=== PATIENT | female | born 1960 | race Caucasian/White ===

== ENCOUNTER 2016-04-27 10:37 | Emergency (ER) | payer MEDICAID, OTHER ==
[~2016-04-27] VITALS: Ht 160 cm; Wt 75.0 kg
[~2016-04-27 10:37] MED LIST: CYCL-36 PO; IBUP800 PO; MS C60TA4 PO
[2016-04-27 10:50] VITALS: BP 146/71; PULSE 72; RESP 16; TEMP 98.7; O2SAT 95
[2016-04-27] MEDS ORDERED: SODIUM CHLOR 0.9% 1000 ML INJ 1,000 ML IV SCH (10:53)
[2016-04-27] MEDS ORDERED: MS C60TA2 PO (10:56)
[2016-04-27] MEDS ORDERED: OXYC-426 PO (10:56)
[2016-04-27] MEDS ORDERED: ATEN25TA PO (10:56)
[2016-04-27] MEDS ORDERED: CYCL1TAB29 PO (10:56)
[2016-04-27] MEDS ORDERED: ONDANSETRON HCL 4 MG/2 ML VIAL IVP ONE (11:00)
[2016-04-27] MEDS ORDERED: SODIUM CHLORIDE 0.9% FLUSH 5 ML FLUSH IVF PRN (11:00)
--- NOTE | 2016-04-27 11:06 | PD ---
HPI Chief Complaint: GI Complaint Time Seen by Provider: 10:47 Travel History International Travel<30 days: No Contact w/Intl Traveler<30days: No Traveled to known affect area: No History of Present Illness HPI Patient is a 55-year-old female with history of hypertension, chronic back pain on opioid pain medications, presents to emergency room with complaints of constipation. Patient reports that for the past 10 days, she has felt constipated. Patient reports that she has been unable to have normal bowel movements, reports that she did try taking laxatives last night, reports that she did wake up in the middle of night and had diarrhea. Reports concern as she feels bloated and distended in her abdomen. Reports that she has been feeling nauseous but has not vomited. She has followed up with GI in the past and reports that she had a negative colonoscopy 1 year ago. Patient also reports that for the past 2 days, she has had increased right sided flank pain and hematuria. Reports that she does not have history of kidney stones in the past. Denies dysuria/urgency/freq. No other c/o. PFSH Past Medical History Hypertension: Yes Musculoskeletal: Yes (CHRONIC BACK PAIN WITH OPIATE USE) ?: Not Menopausal: Yes Past Surgical History Section: Yes Other Surgery: Yes (COLONOSCOPY) Family History Family History: Negative Social History Alcohol Use: No Tobacco Use: Yes (1 PPD) Substance Use: No Allergies-Medications (Allergen,Severity, Reaction): Coded Allergies: No Known Allergies (Unverified , 04/27/16) Reported Meds & Prescriptions Reported Meds & Active Scripts Active Reported Flexeril (Cyclobenzaprine HCl) 10 Mg Tab 10 Mg PO BID Atenolol 25 Mg Tab 25 Mg PO DAILY Ms Contin (Morphine Sulfate) 60 Mg Tab 60 Mg PO BID Oxycodone ER (Oxycodone HCl) 30 Mg Tab 30 Mg PO Q12HR Review of Systems General / Constitutional: No: Fever Eyes: No: Visual changes HENT: No: Headaches Cardiovascular: No: Chest Pain or Discomfort Respiratory: No: Shortness of Breath Gastrointestinal: Positive: Nausea, Abdominal Pain, Constipation, No: Vomiting Genitourinary: Positive: Hematuria, No: Urgency, Frequency, Dysuria Musculoskeletal: No: Pain Skin: No Rash Neurologic: No: Weakness Psychiatric: No: Depression Endocrine: No: Polydipsia Hematologic/Lymphatic: No: Easy Bruising Physical Exam Narrative GENERAL: mild distress SKIN: Warm and dry. HEAD: Atraumatic. Normocephalic. EYES: Pupils equal and round. No scleral icterus. No injection or drainage. ENT: No nasal bleeding or discharge. Mucous membranes pink and moist. NECK: Trachea midline. No JVD. CARDIOVASCULAR: Regular rate and rhythm. No murmur appreciated. RESPIRATORY: No accessory muscle use. Clear to auscultation. Breath sounds equal bilaterally. GASTROINTESTINAL: Abdomen soft, distended, no peritoneal signs. Hepatic and splenic margins not palpable. Patient with right sided flank pain on evaluation MUSCULOSKELETAL: No obvious deformities. No clubbing. No cyanosis. No edema. NEUROLOGICAL: Awake and alert. No obvious cranial nerve deficits. Motor grossly within normal limits. Normal speech. PSYCHIATRIC: Appropriate mood and affect; insight and judgment normal. Data Data Last Documented VS Vital Signs Date Time Temp Pulse Resp B/P Pulse Ox O2 Delivery O2 Flow Rate FiO2 04/27/16 10:50 98.7 72 16 146/71 95 Room Air Orders Complete Blood Count With Diff (04/27/16 10:53) Comprehensive Metabolic Panel (04/27/16 10:53) Lipase (04/27/16 10:53) Prothrombin Time / Inr (Pt) (04/27/16 10:53) Act Partial Throm Time (Ptt) (04/27/16 10:53) Urinalysis - C+S If Indicated (04/27/16 10:53) Ct Abd/Pel W/O Iv Contrast (04/27/16 10:53) Iv Access Insert/Monitor (04/27/16 10:53) Ondansetron Inj (Zofran Inj) (04/27/16 11:00) Sodium Chlor 0.9% 1000 Ml Inj (Ns 1000 M (04/27/16 10:53) Sodium Chloride 0.9% Flush (Ns Flush) (04/27/16 11:00) Chest, Single Ap (04/27/16 10:53) Labs Laboratory Tests Test 04/27/16 11:05 White Blood Count 10.1 TH/MM3 Red Blood Count 4.76 MIL/MM3 Hemoglobin 14.3 GM/DL Hematocrit 41.0 % Mean Corpuscular Volume 86.2 FL Mean Corpuscular Hemoglobin 30.1 PG Mean Corpuscular Hemoglobin 34.9 % Concent Red Cell Distribution Width 15.2 % Platelet Count 353 TH/MM3 Mean Platelet Volume 7.6 FL Neutrophils (%) (Auto) 73.8 % Lymphocytes (%) (Auto) 16.1 % Monocytes (%) (Auto) 9.0 % Eosinophils (%) (Auto) 0.6 % Basophils (%) (Auto) 0.5 % Neutrophils # (Auto) 7.4 TH/MM3 Lymphocytes # (Auto) 1.6 TH/MM3 Monocytes # (Auto) 0.9 TH/MM3 Eosinophils # (Auto) 0.1 TH/MM3 Basophils # (Auto) 0.1 TH/MM3 CBC Comment DIFF FINAL Differential Comment Prothrombin Time 10.7 SEC Prothromb Time International 1.0 RATIO Ratio Activated Partial 24.2 SEC Thromboplast Time Urine Color DARK-YELLOW Urine Turbidity CLEAR Urine pH 6.5 Urine Specific [place] 1.018 Urine Protein TRACE mg/dL Urine Glucose (UA) NEG mg/dL Urine Ketones NEG mg/dL Urine Occult Blood NEG Urine Nitrite NEG Urine Bilirubin SMALL Urine Urobilinogen 4.0 MG/DL Urine Leukocyte Esterase NEG Urine RBC 3 /hpf Urine WBC 1 /hpf Urine Squamous Epithelial 4 /hpf Cells Urine Bacteria RARE /hpf Urine Hyaline Casts 1 /lpf Urine Mucus FEW /lpf Microscopic Urinalysis Comment CULT NOT INDICATED Sodium Level 137 MEQ/L Potassium Level 4.1 MEQ/L Chloride Level 100 MEQ/L Carbon Dioxide Level 27.5 MEQ/L Anion Gap 10 MEQ/L Blood Urea Nitrogen 16 MG/DL Creatinine 1.02 MG/DL Estimat Glomerular Filtration 56 ML/MIN Rate Random Glucose 99 MG/DL Calcium Level 9.2 MG/DL Total Bilirubin 1.0 MG/DL Aspartate Amino Transf 213 U/L (AST/SGOT) Alanine Aminotransferase 61 U/L (ALT/SGPT) Alkaline Phosphatase 416 U/L Total Protein 7.8 GM/DL Albumin 3.3 GM/DL Lipase 255 U/L MDM Medical Decision Making Medical Screen Exam Complete: Yes Emergency Medical Condition: Yes Interpretation(s) Vital Signs Date Time Temp Pulse Resp B/P Pulse Ox O2 Delivery O2 Flow Rate FiO2 04/27/16 10:50 98.7 72 16 146/71 95 Room Air Differential Diagnosis Small bowel obstruction, constipation, kidney stone, colitis, electrolyte abnormality, obstructive mass, malignancy Narrative Course Patient is a 55-year-old female who presents to emergency room with complaints of abdominal pain with constipation for the past 10 days. Patient reports that she has been unable to have a normal bowel movement for the past 10 days and does feel like her symptoms are from being on opioid pain medications. Reports that her hematocrit doctor recently increased her dose of pain medications. Patient did take a laxative last night and did have episodes diarrhea yesterday. Patient concerned as she has distended abdomen and diffuse abdominal pain. Reports that she feels nauseous from the abdominal swelling. Patient also with complaints of hematuria for the past 2 days with right-sided flank pain. Patient with no fevers or chills. Patient with no chest pain or shortness of breath. Patient with no other complaints at this time. IV was placed and patient, labs as well as UA ordered. CT abdomen and pelvis ordered for evaluation of possible SBO vs kidney stone vs obstructive pathology causing constipation. Laboratory Tests Test 04/27/16 11:05 White Blood Count 10.1 TH/MM3 (4.0-11.0) Red Blood Count 4.76 MIL/MM3 (4.00-5.30) Hemoglobin 14.3 GM/DL (11.6-15.3) Hematocrit 41.0 % (35.0-46.0) Mean Corpuscular Volume 86.2 FL (80.0-100.0) Mean Corpuscular Hemoglobin 30.1 PG (27.0-34.0) Mean Corpuscular Hemoglobin 34.9 % Concent (32.0-36.0) Red Cell Distribution Width 15.2 % (11.6-17.2) Platelet Count 353 TH/MM3 (150-450) Mean Platelet Volume 7.6 FL (7.0-11.0) Neutrophils (%) (Auto) 73.8 % (16.0-70.0) Lymphocytes (%) (Auto) 16.1 % (9.0-44.0) Monocytes (%) (Auto) 9.0 % (0.0-8.0) Eosinophils (%) (Auto) 0.6 % (0.0-4.0) Basophils (%) (Auto) 0.5 % (0.0-2.0) Neutrophils # (Auto) 7.4 TH/MM3 (1.8-7.7) Lymphocytes # (Auto) 1.6 TH/MM3 (1.0-4.8) Monocytes # (Auto) 0.9 TH/MM3 (0-0.9) Eosinophils # (Auto) 0.1 TH/MM3 (0-0.4) Basophils # (Auto) 0.1 TH/MM3 (0-0.2) CBC Comment DIFF FINAL Differential Comment Prothrombin Time 10.7 SEC (9.8-11.6) Prothromb Time International 1.0 RATIO Ratio Activated Partial 24.2 SEC Thromboplast Time (24.3-30.1) Urine Color DARK-YELLOW (YELLW/STRAW) Urine Turbidity CLEAR (CLEAR) Urine pH 6.5 (5.0-8.5) Urine Specific [place] 1.018 (1.002-1.035) Urine Protein TRACE mg/dL (NEG-TRACE) Urine Glucose (UA) NEG mg/dL (NEG) Urine Ketones NEG mg/dL (NEG) Urine Occult Blood NEG (NEG) Urine Nitrite NEG (NEG) Urine Bilirubin SMALL (NEG) Urine Urobilinogen 4.0 MG/DL (LESS THAN 2.0) Urine Leukocyte Esterase NEG (NEG) Urine RBC 3 /hpf (0-3) Urine WBC 1 /hpf (0-5) Urine Squamous Epithelial 4 /hpf (0-5) Cells Urine Bacteria RARE /hpf (NONE) Urine Hyaline Casts 1 /lpf (RARE) Urine Mucus FEW /lpf (OCC) Microscopic Urinalysis Comment CULT NOT INDICATED Sodium Level 137 MEQ/L (136-145) Potassium Level 4.1 MEQ/L (3.5-5.1) Chloride Level 100 MEQ/L (98-107) Carbon Dioxide Level 27.5 MEQ/L (21.0-32.0) Anion Gap 10 MEQ/L (5-15) Blood Urea Nitrogen 16 MG/DL (7-18) Creatinine 1.02 MG/DL (0.50-1.00) Estimat Glomerular Filtration 56 ML/MIN (>89) Rate Random Glucose 99 MG/DL (74-106) Calcium Level 9.2 MG/DL (8.5-10.1) Total Bilirubin 1.0 MG/DL (0.2-1.0) Aspartate Amino Transf 213 U/L (15-37) (AST/SGOT) Alanine Aminotransferase 61 U/L (10-53) (ALT/SGPT) Alkaline Phosphatase 416 U/L (45-117) Total Protein 7.8 GM/DL (6.4-8.2) Albumin 3.3 GM/DL (3.4-5.0) Lipase 255 U/L (73-393) Last Impressions Chest X-Ray 04/27/16 1053 Signed Impressions: Service Date/Time: Wednesday, April 27, 2016 11:13 - CONCLUSION: Masslike density in the left hilum. Contrasted CT chest recommended. This could be related to mass or round pneumonia. Willis Ayala MD Abdomen/Pelvis CT 04/27/16 1053 Signed Impressions: Service Date/Time: Wednesday, April 27, 2016 11:16 - CONCLUSION: 1. Cirrhotic liver with too numerous to count low-density lesions concerning for metastatic disease. 2. No renal calculi or hydronephrosis. Willis Ayala MD Patient's x-ray chest with questionable masslike density to the left hilum. Patient also with CAT scan of abdomen and pelvis with cirrhotic liver containing low-density lesions which are concerning for metastatic disease. A copy of patient's labs and radiology report was given to patient. I did review all findings and concerns with patient and her in detail. Patient understands importance of following with a primary care doctor as well as oncologist. Patient will bring her studies to doctor's office for follow-up. Signs and symptoms of when to return to emergency room was reviewed with patient in detail. Diagnosis Primary Impression: Abdominal pain Qualified Code: R10.84 - Generalized abdominal pain Additional Impressions: Transaminitis Mass of left lung Liver cirrhosis Qualified Code: K74.60 - Cirrhosis of liver without ascites, unspecified hepatic cirrhosis type Liver cyst Liver lesion Referrals: Betsy Mccall MD, Saud El-sayed MD Patient Instructions: General Instructions Additional Instructions: Please provide patient with a copy of her lab work and radiology report at discharge Please follow-up with your primary care doctor as soon as possible Please call video editing internship as well as oncologist as soon as possible for earliest follow-up appointment. Please bring your lab work as well as her radiology report to doctor's office for follow-up on all studies from today. Return to emergency room as needed Return to emergency room if symptoms worsen or progress Disposition: 01 DISCHARGE HOME Condition: Stable Dana Castellanos DO Apr 27, 2016 11:06 Dana Castellanos DO Apr 27, 2016 11:06
[2016-04-27 11:34] LABS: AUTOMATED NEUTROPHIL # 7.4 TH/MM3 (1.8-7.7); BASOPHIL # 0.1 TH/MM3 (0-0.2); BASOPHIL % 0.5 % (0.0-2.0); EOSINOPHIL # 0.1 TH/MM3 (0-0.4); EOSINOPHIL % 0.6 % (0.0-4.0); HEMO FLAGS DIFF FINAL; LYMPH % 16.1 % (9.0-44.0); LYMPHOCYTE # 1.6 TH/MM3 (1.0-4.8); MEAN CELL VOLUME 86.2 FL (80.0-100.0); MEAN CORPUSCULAR HEMOGLOBIN 30.1 PG (27.0-34.0); MEAN CORPUSCULAR HGB CONC 34.9 % (32.0-36.0); NEUT % 73.8 % (16.0-70.0); PLATELET COUNT 353 TH/MM3 (150-450); RED BLOOD COUNT 4.76 MIL/MM3 (4.00-5.30); RED CELL DISTRIBUTION WIDTH 15.2 % (11.6-17.2); WHITE BLOOD COUNT 10.1 TH/MM3 (4.0-11.0)
--- NOTE | 2016-04-27 11:35 | RADRPT ---
EXAM DATE/TIME: 04/27/2016 11:13 [facility] COMPARISON: No previous studies available for comparison. INDICATIONS : Abdominal pain and shortness of breath. MEDICAL HISTORY : None. SURGICAL HISTORY : None. ENCOUNTER: Initial ACUITY: 1 day PAIN SCORE: 8/10 LOCATION: Bilateral lower chest FINDINGS: A single view of the chest demonstrates masslike density in the left hilar region. Right lung is angie r. Heart normal in size. The cardiomediastinal contours are unremarkable. Osseous structures are in tact. CONCLUSION: Masslike density in the left hilum. Contrasted CT chest recommended. This could be related to mass or round pneumonia. Willis Ayala MD on April 27, 2016 at 11:33 Board Certified Radiologist. This report was verified electronically.
--- NOTE | 2016-04-27 11:40 | RADRPT ---
EXAM DATE/TIME: 04/27/2016 11:16 [facility] COMPARISON: No previous studies available for comparison. INDICATIONS : Hematuria. Evaluate for renal stone. ORAL CONTRAST: No oral contrast ingested. RADIATION DOSE: 14.38 CTDIvol (mGy) MEDICAL HISTORY : Hypertension. SURGICAL HISTORY : None. ENCOUNTER: Initial ACUITY: 1 day PAIN SCALE: 0/10 LOCATION: Right abdomen/pelvis TECHNIQUE: Volumetric scanning of the abdomen and pelvis was performed. Using automated exposure control and ad justment of the mA and/or kV according to patient size, radiation dose was kept as low as reasonably achievable to obtain optimal diagnostic quality images. FINDINGS: LOWER LUNGS: The visualized lower lungs are clear. LIVER: Cirrhotic liver containing numerous to count low-density lesions.. There is no dilation of the bilia ry tree. No calcified gallstones. There are some borderline prominent lymph nodes in the stephon hepat is and gastric hepatic ligament. SPLEEN: Normal size without lesion. PANCREAS: Within normal limits. KIDNEYS: Normal in size and shape. There is no mass, stone, or hydronephrosis. ADRENAL GLANDS: Within normal limits. VASCULAR: There is no aortic aneurysm. BOWEL/MESENTERY: The stomach, small bowel, and colon demonstrate no acute abnormality. There is no free intraperitone al air or fluid. ABDOMINAL WALL: Within normal limits. RETROPERITONEUM: There is no lymphadenopathy. BLADDER: No wall thickening or mass. REPRODUCTIVE: Within normal limits. INGUINAL: There is no lymphadenopathy or hernia. MUSCULOSKELETAL: Within normal limits for patient age. CONCLUSION: 1. Cirrhotic liver with too numerous to count low-density lesions concerning for metastatic disease. 2. No renal calculi or hydronephrosis. Willis Ayala MD on April 27, 2016 at 11:37 Board Certified Radiologist. This report was verified electronically.
[2016-04-27 11:42] LABS: APTT (PATIENT) 24.2 SEC (24.3-30.1); PROTHROMBIN TIME - PATIENT 10.7 SEC (9.8-11.6)
[2016-04-27 11:49] LABS: BACTERIA, URINE RARE /hpf; BLOOD, URINE NEG (NEG); COMMENT (UR) CULT NOT INDICATED; CULTURE IF INDICATED CULT NOT INDICATED; GLUCOSE,URINE NEG (NEG); HYALINE CAST, URINE 1 /lpf (RARE); KETONE, URINE NEG (NEG); MUCUS URINE FEW /lpf (OCC); NITRITE,URINE NEG (NEG); PH, URINE 6.5 (5.0-8.5); SQUAMOUS EPITHELIAL CELL URINE 4 /hpf (0-5); URINE COLOR DARK-YELLOW (YELLW/STRAW)
[2016-04-27 11:53] LABS: ANION GAP 10 MEQ/L (5-15); AST (GOT) 213 U/L (15-37); BICARBONATE 27.5 MEQ/L (21.0-32.0); BLOOD UREA NITROGEN 16 MG/DL (7-18); CHLORIDE 100 MEQ/L (98-107); GLOMERULAR FILTRATION RATE 56 ML/MIN (>89); SODIUM (NA) 137 MEQ/L (136-145)
[2016-04-27 11:57] LABS: ALKALINE PHOSPHATASE 416 U/L (45-117); ALT (GPT) 61 U/L (10-53); POTASSIUM 4.1 MEQ/L (3.5-5.1)
== END 2016-04-27 13:00 | disposition home or self-care (01) ==
LOC: MERGE 10:37 → NEPE 10:37
DX: R10.84 Generalized abdominal pain (principal); R74.0 Nonspecific elevation of levels of transaminase and lactic acid dehydrogenase [LDH]; R91.8 Other nonspecific abnormal finding of lung field; K74.60 Unspecified cirrhosis of liver; K76.89 Other specified diseases of liver; R06.02 Shortness of breath; R11.0 Nausea; I10 Essential (primary) hypertension; F17.210 Nicotine dependence, cigarettes, uncomplicated
CPT/HCPCS: 71010; 74176; 80053; 81001; 83690; 85025; 85610; 85730; 96361; 96374; 99284; J2405; J7030

== ENCOUNTER 2016-05-20 08:14 | Day surgery (SDC) | payer OTHER ==
[~2016-05-20 08:14] MED LIST changes: +ATEN25TA PO; +CYCL1TAB29 PO; +MS C60TA2 PO; +OXYC-426 PO
--- NOTE | 2016-05-20 14:57 | RADRPT ---
EXAM DATE/TIME: 05/20/2016 08:33 [facility] COMPARISON: No previous studies available for comparison. INDICATIONS : Ascites, abdominal distention. MEDICAL HISTORY : Hypertension. SURGICAL HISTORY : section. Colonoscopy. ENCOUNTER: Initial ACUITY: 1 day PAIN SCORE: 3/10 LOCATION: Abdomen. AREA EVALUATED: RUQ/RLQ, MIDLINE, LUQ/LLQ FINDINGS: Imaging of the abdomen and pelvis was performed to evaluate for ascites for possible paracentesis. No ascites seen in the 4 quadrants. CONCLUSION: No abdominal ascites. Willis Ayala MD on May 20, 2016 at 14:55 Board Certified Radiologist. This report was verified electronically.
[2016-05-21] MEDS ORDERED: ATEN25TA PO (08:34)
[2016-05-21] MEDS ORDERED: SPIR50TA PO (08:34)
[2016-05-21] MEDS ORDERED: FURO40TA PO (08:34)
[2016-05-21] MEDS ORDERED: OXYC30TA PO (08:34)
[2016-05-21] MEDS ORDERED: METF500T PO (08:34)
[2016-05-21] MEDS ORDERED: ZOFR8TAB PO (08:34)
[2016-05-21] MEDS ORDERED: CYCL1TAB29 PO (08:37)
[2016-05-21] MEDS ORDERED: MORP60TA24 PO (08:37)
== END 2016-05-20 09:00 | disposition home or self-care (01) ==
LOC: MERGE 08:14 → HRAD 08:14 → HRIP 08:15 → HRAD 09:00
DX: R18.8 Other ascites (principal); I10 Essential (primary) hypertension
CPT/HCPCS: 76705

== ENCOUNTER 2016-05-21 08:18 | Day surgery (SDC) | payer OTHER ==
[2016-05-20 08:38] VITALS: BP 138/74; PULSE 85; RESP 14; TEMP 98.7; O2SAT 95
[2016-05-21] VITALS (8 sets, daily range): BP systolic 111–141; BP diastolic 52–92; PULSE 92–105; RESP 16–20; TEMP 98.3; O2SAT 90–98
[~2016-05-21] VITALS: Ht 160 cm; Wt 69.1 kg
[2016-05-21] MEDS ORDERED: METF500T PO (08:34)
[2016-05-21] MEDS ORDERED: OXYC30TA PO (08:34)
[2016-05-21] MEDS ORDERED: FURO40TA PO (08:34)
[2016-05-21] MEDS ORDERED: ATEN25TA PO (08:34)
[2016-05-21] MEDS ORDERED: SPIR50TA PO (08:34)
[2016-05-21] MEDS ORDERED: ZOFR8TAB PO (08:34)
[2016-05-21] MEDS ORDERED: CYCL1TAB29 PO (08:37)
[2016-05-21] MEDS ORDERED: MORP60TA24 PO (08:37)
[2016-05-21] MEDS ORDERED: SODIUM CHLORIDE 5 ML FLUSH PRN IVF (09:15)
[2016-05-21] MEDS ORDERED: SODIUM CHLOR 0.9% 1000 ML IV SCH (09:15)
[2016-05-21] MEDS ORDERED: LIDOCAINE 1%/EPINEPHrine 1:100,000 SOLN 20 ML VIAL ONE (09:37)
[2016-05-21] MEDS ORDERED: fentaNYL CITRATE 250 MCG/5 ML AMP ONE (10:03)
[2016-05-21] MEDS ORDERED: MIDAZOLAM HCL 5 MG/5 ML VIAL ONE (10:03)
[2016-05-21] MEDS ORDERED: HYDROmorphone HCL 2 MG TAB PO PRN (11:00)
--- NOTE | 2016-05-21 16:22 | RADRPT ---
EXAM DATE/TIME: 05/21/2016 10:12 [facility] COMPARISON: No previous studies available for comparison. INDICATIONS : Liver mass. SEDATION TIME: 30 minutes BIOPSY SITE: Liver MEDICATION(S): 1.) 2.5 mg midazolam (Versed) IV 2.) 125 mcg fentanyl (Sublimaze) IV DEVICE(S): 1.) 18 gauge Temno core biopsy needle MEDICAL HISTORY : Cirrhosis. Diabetes mellitus type 2. Hypertension. Lung mass. SURGICAL HISTORY : section. ENCOUNTER: Initial ACUITY: 1 day PAIN SCORE: 0/10 LOCATION: Liver A total of three core specimen(s) were obtained and sent to the laboratory for pathologic evaluation. PROCEDURE: 1. CT guided liver biopsy of multiple liver masses. 2. Conscious sedation with continuous EKG and oximetry monitoring. 3. EKG and oximetry remained stable throughout the procedure. Prior to the procedure informed consent was obtained. Any appropriate prior imaging studies were rev iewed. Using automated exposure control and adjustment of the mA and/or kV according to patient size, radiat ion dose was kept as low as reasonably achievable to obtain optimal diagnostic quality images. The site was prepped in a sterile fashion. Full sterile technique was used, including cap, mask, vianey rile gloves and gown and a large sterile sheet. Hand hygiene and 2% chlorhexidine and/or betadine/al cohol prep was utilized per protocol for cutaneous antisepsis. The skin and subcutaneous tissues wer e infiltrated with local anesthetic solution. With CT guidance the previously identified target was localized. Biopsy was performed using the presc ribed needle as above. Adequate hemostasis was obtained with compression at the puncture site. Follow-up CT scan reveals no hemorrhage. The patient tolerated the procedure well and there were no complications. The patient was returned to the Radiology Outpatient Unit in stable condition. CONCLUSION: Uncomplicated CT guided biopsy. Willis Ayala MD on May 21, 2016 at 16:20 Board Certified Radiologist. This report was verified electronically.
[2016-05-21] MEDS ORDERED: SODIUM CHLORIDE 5 ML FLUSH BID IVF SCH (21:00)
== END 2016-05-21 15:00 | disposition home or self-care (01) ==
LOC: HRAD 08:18 → HRIP 08:22 → HRAD 15:00
DX: C78.7 Secondary malignant neoplasm of liver and intrahepatic bile duct (principal); K74.60 Unspecified cirrhosis of liver; E11.9 Type 2 diabetes mellitus without complications; I10 Essential (primary) hypertension
CPT/HCPCS: 47000; 77012; 88307; 88341; 88342; J2250; J3010; J7030

== ENCOUNTER 2016-06-05 09:07 | Day surgery (SDC) | payer OTHER ==
[~2016-06-05] VITALS: Ht 160 cm; Wt 70.0 kg
[~2016-06-05 09:07] MED LIST changes: -CYCL-36 PO; +FURO40TA PO; -IBUP800 PO; +METF500T PO; +MORP60TA24 PO; -MS C60TA4 PO; +OXYC30TA PO; +SPIR50TA PO; +ZOFR8TAB PO
[2016-06-05 09:24] VITALS: BP 146/82; PULSE 98; RESP 20; TEMP 97.1; O2SAT 95
[2016-06-05] MEDS ORDERED: PANT20TA2 PO (09:44)
[2016-06-05] MEDS ORDERED: POVIDONE IODINE 5% (ANTISEPSIS KIT) 4 APPLICATIONS EACH NARE SCH (10:30)
[2016-06-05] MEDS ORDERED: SODIUM CHLORIDE 0.9% 1000 ML IV SCH (10:30)
[2016-06-05] MEDS ORDERED: CHLORHEXIDINE GLUCONATE 2 % 1 PACK (2 CLOTHS) TOPICAL SCH (10:30)
[2016-06-05] MEDS ORDERED: VANCOMYCIN 1000 MG/NS 250 ML - implanted port/tunneled catheter IV SCH ×2 (10:30)
[2016-06-05] MEDS ORDERED: ceFAZolin 2 GM PREMIX 50 ML - implanted port/tunneled catheter insertion IV SCH (10:30)
[2016-06-05] MEDS ORDERED: MUPIROCIN 2% OINT 1 APPLIC/GM SYR EACH NARE SCH (10:30)
[2016-06-05] MEDS ORDERED: LIDOCAINE 1%/EPINEPHrine 1:100,000 SOLN 20 ML VIAL ONE (10:44)
[2016-06-05] MEDS ORDERED: MIDAZOLAM HCL 5 MG/5 ML VIAL ONE (11:06)
[2016-06-05] MEDS ORDERED: fentaNYL CITRATE 250 MCG/5 ML AMP ONE (11:06)
[2016-06-05] MEDS ORDERED: HYDROmorphone HCL PF 2 MG/ML VIAL ONE (11:27)
--- NOTE | 2016-06-05 11:49 | PD.RAD ---
Post Procedure Progress Note Pre Procedure Diagnosis: (1) Liver cancer Post Procedure Diagnosis: (1) Liver cancer Procedure Date: Jun 05, 2016 Supervising Radiologist: Dimas Anders JR Proceduralist/Assist: Colton Kerr, RT(R), RT Barb(R)() Anesthesia: Conscious Sedation Plan of Activity Patient to Unit: ROPU Patient Condition: Good See PACS Report for procedural detail/treatment Central Venous Access Device Procedure 1 Right Internal Jugular Infusaport Placement single lumen [place]: 8 Findings: Port in good position and functions well. OK to use. Plan F/U with IR or a physician in 10-14 days for a site check Jr. Chago,Dimas Crane MD Jun 05, 2016 11:49
[2016-06-05 12:00] VITALS: BP 142/77; PULSE 109; RESP 20; TEMP 96.2; O2SAT 93
[2016-06-05] MEDS ORDERED: SODIUM CHLORIDE 0.9% FLUSH 5 ML FLUSH IVF PRN (12:00)
[2016-06-05 12:15] VITALS: BP 136/75; PULSE 109; RESP 20; O2SAT 93
[2016-06-05 12:45] VITALS: BP 128/78; PULSE 111; RESP 20; O2SAT 93
[2016-06-05 13:15] VITALS: BP 122/80; PULSE 106; RESP 20; O2SAT 93
--- NOTE | 2016-06-05 13:32 | RADRPT ---
EXAM DATE/TIME: 06/05/2016 11:18 [facility] COMPARISON: No previous studies available for comparison. INDICATIONS : Patient with history of lung and liver cancer in need of port placement. MEDICAL HISTORY : 1.Liver cancer 2. Lung cancer 3.Osteoarthritis 4.DDD 5.Hypertension 6.DM 7.Cirroses 8.GERD 9.Anxiety 10.Depression 11.Smoker 12.Chronic back pain SURGICAL HISTORY : 1. ENCOUNTER: Initial ACUITY: 2 weeks PAIN SCORE: 4/10 LOCATION: Lower back. FLUORO TIME: 0.4 minutes IMAGE SERIES: 1 SEDATION TIME: 20 minutes ACCESS: Right internal jugular vein SEDATION: 1.) 4 mg midazolam (Versed) IV 2.) 200 mcg fentanyl (Sublimaze) IV 3.) 2mg hydromorphone (Dilaudid) IV Prophylactic antibiotics were administered with appropriate pre-procedure timing. Vancomycin within 2 hours of procedure, Ancef (or alternative) within 1 hour of procedure. DEVICE: 1. 8 [place] single lumen Bard Power Port PROCEDURE : 1. Continuous pulse oximetry and EKG monitoring. 2. Intravenous conscious sedation. 3. Ultrasound guidance for venous access. 4. Fluoroscopic guided implantable central venous port placement. The patient was placed supine. The neck was prepped in sterile fashion. Full sterile technique was u sed, including cap, mask, sterile gloves and gown, and a large sterile sheet. Hand hygiene and 2% ch lorhexidine Betadine was utilized per protocol for cutaneous antisepsis with appropriate dry time for site. The skin and subcutaneous tissues were infiltrated with local anesthetic solution. Under direct ultrasound guidance, central venous access was accomplished in the targeted vessel. The ultrasound images depicting access guidance were stored and saved to PACS for permanent record. A s ubcutaneous pocket was created using blunt dissection. The port was introduced to the pocket. The c atheter tubing was fed through a subcutaneous tunnel to the venotomy site. The catheter tubing was c ut to a suitable length and then was introduced through a valved Peel-Away sheath and positioned with catheter tubing tip at the cavo-atrial junction level. The pocket incision was closed with subcutic ular Vicryl suture. Steri-Strips were applied. The port was flushed and locked with heparin solutio n per protocol. Sterile dressing was applied to the site. The patient tolerated the procedure well. Conscious sedation was performed with the prescribed dosages and duration as above in the presence of an independent trained radiology nurse to assist in the monitoring of the patient. EKG and oximetry remained stable throughout the procedure. The patient tolerated the procedure well and there were no complications. The patient was sent to post anesthesia recovery in stable condition. CONCLUSION: Uncomplicated ultrasound and fluoroscopic guided implanted central venous port catheter placement as described in detail above. An 8 [place] Power port was placed. Dimas Anders Jr., MD on June 05, 2016 at 13:30 Board Certified Radiologist. This report was verified electronically.
[2016-06-05 13:45] VITALS: BP 109/70; PULSE 99; RESP 20; O2SAT 93
== END 2016-06-05 14:00 | disposition home or self-care (01) ==
LOC: HROP 09:07 → HRIP 09:08 → HROP 14:00
PROVIDERS: ATTEND Internal Medicine Hematology & Oncology
DX: C22.9 Malignant neoplasm of liver, not specified as primary or secondary (principal); I10 Essential (primary) hypertension; Z85.118 Personal history of other malignant neoplasm of bronchus and lung; E11.9 Type 2 diabetes mellitus without complications; G89.29 Other chronic pain; K21.9 Gastro-esophageal reflux disease without esophagitis; F17.210 Nicotine dependence, cigarettes, uncomplicated
CPT/HCPCS: 36561; 76937; 77001; 99152; 99153; C1788; J1170; J1642; J2250; J3010

== ENCOUNTER 2016-07-14 10:16 | Emergency (ER) | payer OTHER ==
[~2016-07-14] VITALS: Ht 160 cm; Wt 66.5 kg
[~2016-07-14 10:16] MED LIST changes: -FURO40TA PO; -METF500T PO; +PANT20TA2 PO; -SPIR50TA PO
[2016-07-14 10:18] VITALS: BP 169/75; PULSE 102; RESP 17; TEMP 98.6; O2SAT 95
--- NOTE | 2016-07-14 11:16 | RADRPT ---
EXAM DATE/TIME: 07/14/2016 11:06 [facility] COMPARISON: No previous studies available for comparison. INDICATIONS : Chest pain. MEDICAL HISTORY : Hypertension. Carcinoma, lung. Diabetes mellitus type II. Smoker. SURGICAL HISTORY : Port placement. ENCOUNTER: Initial ACUITY: 2 days PAIN SCORE: 10/10 LOCATION: Right chest, port location. FINDINGS: PA and lateral views of the chest demonstrate lingular density. Right lung is clear. Right-sided port acatheter with tip in the SVC. The cardiomediastinal contours are unremarkable. Osseous structures a re intact. CONCLUSION: Lingular density could be atelectasis or infiltrate. Willis Ayala MD on July 14, 2016 at 11:14 Board Certified Radiologist. This report was verified electronically.
[2016-07-14] MEDS ORDERED: KETOROLAC TROMETHAMINE 60 MG/2 ML (IM) VIAL IM ONE (12:15)
[2016-07-14] MEDS ORDERED: ORPHENADRINE INJ 60 MG/2 ML AMP IM ONE (12:15)
--- NOTE | 2016-07-14 12:16 | PD ---
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 Patient states she woke up at 5 AM this morning with the pain, she noticed swelling above her right clavicle as well. She states it's painful to rotate her head to the right, she reports her pain is a 10 out of 10. She denies any injury or trauma, she denies any headaches, chest pain, shortness of breath, abdominal pain, nausea or vomiting, fevers. Patient's past medical history significant for lung cancer with metastatic disease, hypertension, GERD. Patient took oxycodone at 0500 this morning she fell back asleep, when she woke the pain was still there so she came to emergency department for evaluation. PFSH Past Medical History Arthritis: Yes (OSTEOARTHRITIS) Cancer: Yes (metastatic lung cancer) Cardiovascular Problems: No High Cholesterol: Yes (PT STATES WNL LIMITS) COPD: Yes Diabetes: Yes Diminished Hearing: No Endocrine: No GERD: Yes Hepatitis: No Hiatal Hernia: No Hypertension: Yes Immune Disorder: No Musculoskeletal: Yes (SPINE DISEASE (DEGENERATIVE DISC)) Neurologic: No Psychiatric: No Reproductive: No Thyroid Disease: No ?: Not Menopausal: Yes : 3 Para: 2 : 1 Past Surgical History Abdominal Surgery: No AICD: No Cardiac Surgery: No Section: Yes Ear Surgery: No Endocrine Surgery: No Eye Surgery: No Genitourinary Surgery: No Gynecologic Surgery: Yes (C SECTION) Joint Replacement: No Oral Surgery: No Pacemaker: No Thoracic Surgery: No Other Surgery: Yes (COLONOSCOPY) Family History Family Hypercholesterolemia: Yes (FATHER) Social History Alcohol Use: No Tobacco Use: Yes (1 PPD) Substance Use: No Allergies-Medications (Allergen,Severity, Reaction): Coded Allergies: No Known Allergies (Verified , 07/14/16) Reported Meds & Prescriptions Reported Meds & Active Scripts Active Reported Pantoprazole (Pantoprazole Sodium) 20 Mg Tab 20 Mg PO DAILY Zofran (Ondansetron HCl) 8 Mg Tab 8 Mg PO TID Flexeril (Cyclobenzaprine HCl) 10 Mg Tab 10 Mg PO BID Atenolol 25 Mg Tab 25 Mg PO DAILY Ms Contin (Morphine Sulfate) 60 Mg Tab 60 Mg PO BID Oxycodone ER (Oxycodone HCl) 30 Mg Tab 30 Mg PO Q12HR Review of Systems Except as stated in HPI: all other systems reviewed are Neg HENT: Positive: Neck Stiffness, Neck Pain, No: Headaches Musculoskeletal: Positive: Edema (above right clavicle) Physical Exam Narrative GENERAL: Well-developed, chronically ill-appearing female. Resting in no acute distress. SKIN: Focused skin assessment warm/dry. HEAD: Atraumatic. Normocephalic. EYES: Pupils equal and round. No scleral icterus. No injection or drainage. ENT: No nasal bleeding or discharge. Mucous membranes pink and moist. NECK: Trachea midline. No JVD. CARDIOVASCULAR: Regular rate and rhythm. 2/6 murmur appreciated. RESPIRATORY: No accessory muscle use. Clear to auscultation. Breath sounds equal bilaterally. GASTROINTESTINAL: Abdomen soft, non-tender, nondistended. Hepatic and splenic margins not palpable. MUSCULOSKELETAL: No obvious deformities. No clubbing. No cyanosis. Mild supraclavicular edema on the right, tender point in right trapezius. No spinal tenderness noted. NEUROLOGICAL: Awake and alert. No obvious cranial nerve deficits. Motor grossly within normal limits. Normal speech. PSYCHIATRIC: Appropriate mood and affect; insight and judgment normal. Data Data Last Documented VS Vital Signs Date Time Temp Pulse Resp B/P Pulse Ox O2 Delivery O2 Flow Rate FiO2 07/14/16 10:18 98.6 102 17 169/75 95 Orders Chest, Pa & Lat (07/14/16 ) Ketorolac Inj (Toradol Inj) (07/14/16 12:15) Orphenadrine Inj (Norflex Inj) (07/14/16 12:15) [facility] Medical Decision Making Medical Screen Exam Complete: Yes Emergency Medical Condition: Yes Interpretation(s) Vital Signs Date Time Temp Pulse Resp B/P Pulse Ox O2 Delivery O2 Flow Rate FiO2 07/14/16 10:18 98.6 102 17 169/75 95 Differential Diagnosis Strain versus sprain versus spasm versus discogenic pain versus other Narrative Course Patient's 56-year-old female presenting to emergency for evaluation of right neck pain that started upon awakening this morning. Patient is afebrile, no meningeal signs. Patient will be given Toradol and Norflex now. Due to the swelling in the right supraclavicular region. Attending physician recommended ultrasound. Ultrasound ordered and pending. 1340 patient wants to leave, she needs to go to her oncologist office to have her port flushed. She was advised that she would be leaving the emergency department without been fully evaluated. She was advised on the risks regarding possible blood clot. Verbalizes instructions and then stated that her oncologist will evaluate her. She was advised to return to emergency department immediately for any new or worsening symptoms. Patient be given prescriptions for ibuprofen and Flexeril. She was encouraged to alternate heat and ice to affected area, continue range of motion exercises, avoid bed rest. Patient and verbalized understanding of these instructions. Patient is stable for discharge. Diagnosis Primary Impression: Cervical paraspinal muscle spasm Referrals: Primary Care Physician Patient Instructions: General Instructions, Muscle Spasm (ED), Muscle Strain ( ED) Additional Instructions: Follow-up with primary doctor as scheduled Take medications as directed Apply heat to the affected area, continue range of motion exercises, avoid bed rest Return to emergency department for any new or worsening symptoms Med/Other Pt SpecificInfo: Prescription(s) given Scripts Cyclobenzaprine (Flexeril)10 Mg Tab10 Mg PO TID PRN (MUSCLE SPASM) 10 Days Ref 0 Prov:Nelly Barry 07/14/16 Ibuprofen 600 Mg [id number] Mg PO Q6H PRN (Pain/Inflammation) #40 TAB Ref 0 Prov:Nelly Barry 07/14/16 Disposition: 01 DISCHARGE HOME Condition: Stable Nelly Barry Jul 14, 2016 12:16
[2016-07-14] MEDS ORDERED: CYCL1TAB29 PO (13:44)
[2016-07-14] MEDS ORDERED: IBUP-232 PO (13:44)
--- NOTE | 2016-07-14 13:55 | PD ---
Data Data Last Documented VS Vital Signs Date Time Temp Pulse Resp B/P Pulse Ox O2 Delivery O2 Flow Rate FiO2 07/14/16 10:18 98.6 102 17 169/75 95 Orders Chest, Pa & Lat (07/14/16 ) Ketorolac Inj (Toradol Inj) (07/14/16 12:15) Orphenadrine Inj (Norflex Inj) (07/14/16 12:15) MDM Supervised Visit with VALERIE: Yes Narrative Course The history, exam, and medical decision-making in the associated mid-level provider note were completed with my assistance. I reviewed and agree with the findings presented. I attest that I had a [id number] encounter with the patient on the same day, and personally performed and documented my assessment and findings in the medical record. *My assessment and Findings: 56-year-old with metastatic lung cancer, presents with right sided neck pain and fullness. She is a poor on that side as well. She looks well. She's had a history of some neck and back process. She has no cancer the neck that she knows of. Recommended ultrasound to look for DVT or jugular vein thrombosis. Patient while waiting after about 3 hours states that she cannot wait anymore. She apparently a report cleaned at her oncologist office. She is at this point : Much better. She agrees to return for any worsening neck fullness or arm swelling, or worsening pain. Diagnosis Primary Impression: Cervical paraspinal muscle spasm Referrals: Primary Care Physician Patient Instructions: General Instructions, Muscle Strain (ED), Muscle Spasm ( ED) Departure Forms: Tests/Procedures Additional Instruction: Follow-up with primary doctor as scheduled Take medications as directed Apply heat to the affected area, continue range of motion exercises, avoid bed rest Return to emergency department for any new or worsening symptoms Scripts Cyclobenzaprine (Flexeril)10 Mg Tab10 Mg PO TID PRN (MUSCLE SPASM) 10 Days Ref 0 Prov:Nelly Barry 07/14/16 Ibuprofen 600 Mg [id number] Mg PO Q6H PRN (Pain/Inflammation) #40 TAB Ref 0 Prov:Nelly Barry 07/14/16 Disposition: 01 DISCHARGE HOME Condition: Good Rickey Medina MD Jul 14, 2016 13:55
== END 2016-07-14 14:04 | disposition home or self-care (01) ==
LOC: NEPD 10:16
DX: M62.838 Other muscle spasm (principal); C34.92 Malignant neoplasm of unspecified part of left bronchus or lung; C78.7 Secondary malignant neoplasm of liver and intrahepatic bile duct; I10 Essential (primary) hypertension; F17.210 Nicotine dependence, cigarettes, uncomplicated
CPT/HCPCS: 71020; 96372; 99283; J1885; J2360

== ENCOUNTER 2016-09-19 17:14 | Emergency (ER) | payer MEDICARE, OTHER ==
[~2016-09-19] VITALS: Ht 160 cm; Wt 70.0 kg
[~2016-09-19 17:14] MED LIST changes: +IBUP-232 PO; -MORP60TA24 PO; -OXYC30TA PO
[2016-09-19 17:15] VITALS: BP 138/62; PULSE 101; RESP 17; TEMP 98.8; O2SAT 94
[2016-09-19 17:57] VITALS: BP 132/74; PULSE 93; RESP 16; O2SAT 97
[2016-09-19] MEDS ORDERED: SODIUM CHLOR 0.9% 1000 ML INJ 1,000 ML IV SCH (17:59)
[2016-09-19] MEDS ORDERED: ONDANSETRON HCL 4 MG/2 ML VIAL IVP ONE (18:00)
[2016-09-19] MEDS ORDERED: HYDROmorphone HCL PF 1 MG/ML VIAL IVS ONE (18:00)
[2016-09-19 18:02] VITALS: O2SAT 97
--- NOTE | 2016-09-19 18:45 | PD ---
HPI Chief Complaint: Abdominal Pain Time Seen by Provider: 18:42 Travel History International Travel<30 days: No Contact w/Intl Traveler<30days: No Traveled to known affect area: No History of Present Illness HPI 56-year-old female that presents to the ED for evaluation of right upper abdominal pain. Per patient she's had this since the past 2 days. Per patient she's had some constipation as well but she did have a bowel movement yesterday although it was hard for her to have that she had to use medications and strain to have the bowel movement. 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 She last received chemotherapy this week. She follows with Dr. Tapia for oncology. Patient has been taking her pain medications with minimal relief. The patient her pain significantly 8 out of 10. She denies any gas passage. She denies any bleeding. She does have known metastasis to the liver. She states that this pain feels different from her normal. She denies any chest discomfort. Per patient she has shortness of breath but this is not changed from prior. She takes blood thinners. She has no allergies to medication. Pain does not radiate. No lower abdominal pain. No diarrhea. No bleeding of any kind. PFSH Past Medical History Arthritis: Yes (OSTEOARTHRITIS) Cancer: Yes (metastatic lung cancer) Cardiovascular Problems: No High Cholesterol: Yes (PT STATES WNL LIMITS) Chemotherapy: Yes (LUNG CA) COPD: Yes Diabetes: Yes Patient Takes Glucophage: No Diminished Hearing: No Endocrine: No Gastrointestinal Disorders: Yes (nausea) GERD: Yes Hepatitis: No Hiatal Hernia: No Hypertension: Yes (PT STATES NOW WNL) Immune Disorder: No Medical other: Yes (ARTHRITIS) Musculoskeletal: Yes (SPINE DISEASE (DEGENERATIVE DISC)) Neurologic: No Psychiatric: No Reproductive: No Respiratory: Yes (LUNG CA) Thyroid Disease: No Tetanus Vaccination: > 5 Years Influenza Vaccination: No ?: Not Menopausal: Yes : 3 Para: 2 : 1 Past Surgical History Abdominal Surgery: No AICD: No Cardiac Surgery: No Section: Yes Ear Surgery: No Endocrine Surgery: No Eye Surgery: No Genitourinary Surgery: No Gynecologic Surgery: Yes (C SECTION) Joint Replacement: No Oral Surgery: No Pacemaker: No Thoracic Surgery: No Other Surgery: Yes (RIGHT THUMB DEBRIDEMENT) Family History Family Hypercholesterolemia: Yes (FATHER) Social History Alcohol Use: No Tobacco Use: Yes (1 PPD) Substance Use: No Allergies-Medications (Allergen,Severity, Reaction): Coded Allergies: No Known Allergies (Verified , 09/19/16) Reported Meds & Prescriptions Reported Meds & Active Scripts Active Reported Pantoprazole (Pantoprazole Sodium) 20 Mg Tab 20 Mg PO DAILY Zofran (Ondansetron HCl) 8 Mg Tab 8 Mg PO TID Flexeril (Cyclobenzaprine HCl) 10 Mg Tab 10 Mg PO BID Atenolol 25 Mg Tab 25 Mg PO DAILY Ms Contin (Morphine Sulfate) 60 Mg Tab 60 Mg PO BID Oxycodone ER (Oxycodone HCl) 30 Mg Tab 30 Mg PO Q12HR Review of Systems Except as stated in HPI: all other systems reviewed are Neg Physical Exam Narrative GENERAL: SKIN: Warm and dry. HEAD: Atraumatic. Normocephalic. EYES: Pupils equal and round. No scleral icterus. No injection or drainage. ENT: No nasal bleeding or discharge. Mucous membranes pink and moist. Tongue is midline. No uvula deviation. NECK: Trachea midline. No JVD. CARDIOVASCULAR: Regular rate and rhythm. No murmurs, S3, S4. RESPIRATORY: No accessory muscle use. Clear to auscultation. Breath sounds equal bilaterally. GASTROINTESTINAL: Abdomen soft, tender to palpation on the right upper quadrant , nondistended. Hepatic and splenic margins not palpable. MUSCULOSKELETAL: Extremities without clubbing, cyanosis, or edema. No obvious deformities. NEUROLOGICAL: Awake and alert. No obvious cranial nerve deficits. Motor grossly within normal limits. Five out of 5 muscle strength in the arms and legs. Normal speech. PSYCHIATRIC: Appropriate mood and affect; insight and judgment normal. Data Data Last Documented VS Vital Signs Date Time Temp Pulse Resp B/P Pulse Ox O2 Delivery O2 Flow Rate FiO2 09/19/16 18:02 97 Nasal Cannula 2 09/19/16 17:57 93 16 132/74 09/19/16 17:15 98.8 Orders Complete Blood Count With Diff (09/19/16 17:59) Comprehensive Metabolic Panel (09/19/16 17:59) Lipase (09/19/16 17:59) Lactic Acid (09/19/16 17:59) Prothrombin Time / Inr (Pt) (09/19/16 17:59) Act Partial Throm Time (Ptt) (09/19/16 17:59) Urinalysis - C+S If Indicated (09/19/16 17:59) Ct Abd/Pel W Iv Contrast(Rout) (09/19/16 17:59) Iv Access Insert/Monitor (09/19/16 17:59) Ecg Monitoring (09/19/16 17:59) Oximetry (09/19/16 17:59) NPO (09/19/16 17:59) Ondansetron Inj (Zofran Inj) (09/19/16 18:00) Sodium Chlor 0.9% 1000 Ml Inj (Ns 1000 M (09/19/16 17:59) Electrocardiogram (09/19/16 17:59) Hydromorphone Pf Inj (Dilaudid Pf Inj) (09/19/16 18:00) Potassium Chlor 10 Meq Premix (Kcl 10 Me (09/19/16 19:45) Iohexol 350 Inj (Omnipaque 350 Inj) (09/19/16 19:57) Hydromorphone Pf Inj (Dilaudid Pf Inj) (09/19/16 21:15) Potassium Chloride (Kcl) (09/19/16 21:15) Labs Laboratory Tests Test 09/19/16 09/19/16 18:30 18:40 Urine Color YELLOW Urine Turbidity CLEAR Urine pH 5.0 Urine Specific Rentz 1.014 Urine Protein NEG mg/dL Urine Glucose (UA) NEG mg/dL Urine Ketones NEG mg/dL Urine Occult Blood NEG Urine Nitrite NEG Urine Bilirubin NEG Urine Urobilinogen LESS THAN 2.0 MG/DL Urine Leukocyte Esterase NEG Urine RBC LESS THAN 1 /hpf Urine WBC LESS THAN 1 /hpf Microscopic Urinalysis Comment CULT NOT INDICATED White Blood Count 6.0 TH/MM3 Red Blood Count 2.88 MIL/MM3 Hemoglobin 9.2 GM/DL Hematocrit 27.7 % Mean Corpuscular Volume 96.2 FL Mean Corpuscular Hemoglobin 31.9 PG Mean Corpuscular Hemoglobin 33.1 % Concent Red Cell Distribution Width 20.3 % Platelet Count 143 TH/MM3 Mean Platelet Volume 7.9 FL Neutrophils (%) (Auto) 83.7 % Lymphocytes (%) (Auto) 14.9 % Monocytes (%) (Auto) 1.2 % Eosinophils (%) (Auto) 0.1 % Basophils (%) (Auto) 0.1 % Neutrophils # (Auto) 5.0 TH/MM3 Lymphocytes # (Auto) 0.9 TH/MM3 Monocytes # (Auto) 0.1 TH/MM3 Eosinophils # (Auto) 0.0 TH/MM3 Basophils # (Auto) 0.0 TH/MM3 CBC Comment DIFF FINAL Differential Comment Prothrombin Time 10.0 SEC Prothromb Time International 0.9 RATIO Ratio Activated Partial 25.7 SEC Thromboplast Time Sodium Level 140 MEQ/L Potassium Level 2.9 MEQ/L Chloride Level 110 MEQ/L Carbon Dioxide Level 22.5 MEQ/L Anion Gap 8 MEQ/L Blood Urea Nitrogen 26 MG/DL Creatinine 0.56 MG/DL Estimat Glomerular Filtration 112 ML/MIN Rate Random Glucose 108 MG/DL Lactic Acid Level 1.0 mmol/L Calcium Level 6.7 MG/DL Protein Corrected Calcium 7.6 MG/DL Total Bilirubin 0.4 MG/DL Aspartate Amino Transf 199 U/L (AST/SGOT) Alanine Aminotransferase 24 U/L (ALT/SGPT) Alkaline Phosphatase 218 U/L Total Protein 5.3 GM/DL Albumin 2.3 GM/DL Lipase 134 U/L MDM Medical Decision Making Medical Screen Exam Complete: Yes Emergency Medical Condition: Yes Medical Record Reviewed: Yes Interpretation(s) CBC & BMP Diagram 09/19/16 18:40 Last Impressions Abdomen/Pelvis CT 09/19/16 [id number] Signed Impressions: Service Date/Time: Thursday, September 19, 2016 19:56 - CONCLUSION: 1. Numerous hepatic metastatic lesions. 2. Sclerotic bone metastasis. 3. Nonobstructing bowel gas pattern with moderate amount of stool which could indicate constipation. Mo Tejada MD lactic acid WNL LFTS and lipase WNL UA negative Differential Diagnosis GERD versus liver cancer versus obstruction versus enteritis versus gastritis versus pancreatitis versus sepsis versus weakness Narrative Course 56-year-old female that presents to the ED for evaluation of right upper quadrant pain. Patient was properly examined and was found to have signs and symptoms consistent with upper quadrant pain. Unclear etiology. Patient does have risk factors for obstruction including metastases of cancer. Patient also already takes pain medication and states that this pain is different. At this time I recommend labs and imaging. Patient was started on IV fluids as well as Dilaudid. Labs and imaging showed no sign of acute disease or liver metastases as well as constipation. No sign of obstruction more importantly. Case was discussed in my attending Dr Mcbride who recommends offering admission tonight the patient cancer status and continues pain even after Dilaudid. This was offered to the patient and she preferred to go home. At this time I believe this is reasonable as patient is able to tolerate by mouth. Patient was told to take pain medications as prescribed by her doctor. Patient was given Dilaudid before going home. Patient will be given also by mouth and IV potassium to replenish her potassium. Patient was told that if anything changes she is to come back here to the ED. See ED worsening symptoms. Diagnosis Primary Impression: RUQ abdominal pain Additional Impression: Liver metastasis Patient Instructions: General Instructions, Narcotic given in the ED Additional Instructions: Continue taking pain medication as prescribed by her doctor. Follow-up with PCP. See ED for any worsening symptoms. Med/Other Pt SpecificInfo: Prescription(s) given Disposition: 01 DISCHARGE HOME Condition: Stable Mannie Moya Sep 19, 2016 18:45
[2016-09-19 19:04] LABS: BLOOD, URINE NEG (NEG); GLUCOSE,URINE NEG (NEG); KETONE, URINE NEG (NEG); NITRITE,URINE NEG (NEG); URINE COLOR YELLOW (YELLW/STRAW)
[2016-09-19 19:05] LABS: COMMENT (UR) CULT NOT INDICATED; CULTURE IF INDICATED CULT NOT INDICATED
[2016-09-19 19:09] LABS: BASOPHIL % 0.1 % (0.0-2.0); EOSINOPHIL % 0.1 % (0.0-4.0); HEMATOCRIT 27.7 % (35.0-46.0); HEMO FLAGS DIFF FINAL; LYMPH % 14.9 % (9.0-44.0); LYMPHOCYTE # 0.9 TH/MM3 (1.0-4.8); MEAN CELL VOLUME 96.2 FL (80.0-100.0); MEAN CORPUSCULAR HEMOGLOBIN 31.9 PG (27.0-34.0); MEAN CORPUSCULAR HGB CONC 33.1 % (32.0-36.0); MONO % 1.2 % (0.0-8.0); NEUT % 83.7 % (16.0-70.0); PLATELET COUNT 143 TH/MM3 (150-450); RED BLOOD COUNT 2.88 MIL/MM3 (4.00-5.30); RED CELL DISTRIBUTION WIDTH 20.3 % (11.6-17.2)
[2016-09-19 19:19] LABS: APTT (PATIENT) 25.7 SEC (24.3-30.1); INTERNATIONAL NORMALIZED RATIO 0.9 RATIO
[2016-09-19 19:29] LABS: BICARBONATE 22.5 MEQ/L (21.0-32.0); CALCIUM-PROTEIN CORRECTED 7.6 MG/DL (8.5-10.1); TOTAL BILIRUBIN ADULT 0.4 MG/DL (0.2-1.0)
[2016-09-19 19:33] LABS: POTASSIUM 2.9 MEQ/L (3.5-5.1)
[2016-09-19] MEDS ORDERED: IOHEXOL 350 MG/ML 10 ML VIAL (for RAD DIAG) IV ONE (19:57)
--- NOTE | 2016-09-19 20:24 | RADRPT ---
EXAM DATE/TIME: 09/19/2016 19:56 [facility] COMPARISON: CT ABDOMEN & PELVIS W/O CONTRAST, April 27, 2016, 11:16. INDICATIONS : Right sided abdominal pain with constipation. Current chemo treatments for metastatic lung cancer wit h liver metastasis.. IV CONTRAST: 92 cc Omnipaque 350 (iohexol) IV ORAL CONTRAST: No oral contrast ingested. RADIATION DOSE: 6.90 CTDIvol (mGy) MEDICAL HISTORY : Hypertension. Chronic obstructive pulmonary disease. Gastroesophageal reflux disease.Lung cancer. SURGICAL HISTORY : section. Spinal surgery. ENCOUNTER: Initial ACUITY: 1 day PAIN SCALE: 10/10 LOCATION: Right abdomen TECHNIQUE: Volumetric scanning of the abdomen and pelvis was performed. Using automated exposure control and ad justment of the mA and/or kV according to patient size, radiation dose was kept as low as reasonably achievable to obtain optimal diagnostic quality images. DICOM format image data is available electro nically for review and comparison. FINDINGS: LOWER LUNGS: The visualized lower lungs are clear. LIVER: The liver is normal in size and shape with multiple scattered low attenuation lesions measuring from several millimeters up to 3 cm in diameter throughout the right and left lobes consistent with metast atic disease. SPLEEN: Normal size without lesion. PANCREAS: Within normal limits. KIDNEYS: Normal in size and shape. There is no mass, stone or hydronephrosis. ADRENAL GLANDS: Within normal limits. VASCULAR: There is no aortic aneurysm. BOWEL/MESENTERY: The stomach, small bowel, and colon demonstrate no acute abnormality. A moderate amount of stool is noted throughout the colon. There is no free intraperitoneal air or fluid. ABDOMINAL WALL: Within normal limits. RETROPERITONEUM: There is no lymphadenopathy. BLADDER: No wall thickening or mass. REPRODUCTIVE: Within normal limits. INGUINAL: There is no lymphadenopathy or hernia. MUSCULOSKELETAL: There are multiple scattered sclerotic metastatic lesions. There is mild scoliosis and degenerative c hange. CONCLUSION: 1. Numerous hepatic metastatic lesions. 2. Sclerotic bone metastasis. 3. Nonobstructing bowel gas pattern with moderate amount of stool which could indicate constipation. Mo Tejada MD on September 19, 2016 at 20:18 Board Certified Radiologist. This report was verified electronically.
[2016-09-19] MEDS: POTASSIUM CHLOR 10 MEQ PREMIX 100 ML IV SCH ×3 (20:33→21:51)
[2016-09-19] MEDS ORDERED: HYDROmorphone HCL PF 1 MG/ML VIAL IV PUSH ONE (21:15)
[2016-09-19] MEDS ORDERED: POTASSIUM CHLORIDE 20 MEQ CONTROLLED RELEASE TAB PO ONE (21:15)
[2016-09-19] MEDS ORDERED: SODIUM CHLORIDE 0.9% FLUSH 10 ML FLUSH IVF PRN (21:45)
[2016-09-19] MEDS ORDERED: HEPARIN SODIUM - IV 2,000 UNITS/2 ML VIAL IV FLUSH PRN (21:45)
--- NOTE | 2016-09-20 07:03 | EKG ---
Date Performed: 09/19/2016 Time Performed: 18:28:04 PTAGE: 56 years EKG: Sinus rhythm LEFT ATRIAL ENLARGEMENT POSSIBLE RIGHT VENTRICULAR CONDUCTION DELAY ABNORMAL ECG NO PREVIOUS TRACING DOCTOR: Slade Rosario Interpretating Date/Time 09/20/2016 07:01:34
== END 2016-09-19 22:04 | disposition home or self-care (01) ==
LOC: NEPC 17:14
DX: R10.11 Right upper quadrant pain (principal); C22.8 Malignant neoplasm of liver, primary, unspecified as to type; C79.51 Secondary malignant neoplasm of bone; K59.00 Constipation, unspecified; E78.00 Pure hypercholesterolemia, unspecified; J44.9 Chronic obstructive pulmonary disease, unspecified; E11.9 Type 2 diabetes mellitus without complications; K21.9 Gastro-esophageal reflux disease without esophagitis; I10 Essential (primary) hypertension
CPT/HCPCS: 74177; 80053; 81001; 83605; 83690; 85025; 85610; 85730; 93005; 96361; 96374; 96375; 96376; 99285; J1170; J1642; J2405; J3480; J7030; Q9967

== ENCOUNTER 2016-11-01 19:49 | Emergency (ER) | payer MEDICARE, OTHER ==
[~2016-11-01] VITALS: Ht 160 cm; Wt 66.0 kg
[~2016-11-01 19:49] MED LIST changes: -IBUP-232 PO
[2016-11-01 19:51] VITALS: BP 157/73; PULSE 118; RESP 18; TEMP 98.7; O2SAT 94
--- NOTE | 2016-11-01 20:12 | PD ---
HPI Chief Complaint: Abdominal Pain Time Seen by Provider: 20:12 Travel History International Travel<30 days: No Contact w/Intl Traveler<30days: No Traveled to known affect area: No History of Present Illness HPI 56-year-old female with history of metastatic lung cancer, cirrhosis of the liver, presents to the emergency department for evaluation of worsening abdominal distention and pain. Patient states she has had to miss her last 5 chemotherapy treatments due to low platelet count. She is followed by Dr. Mccall. She states that her abdomen keeps getting larger. It discussed and be short of breath. It is with a lot of pressure and pain. Mild nausea without vomiting. Constipation. No urinary symptoms. No fever or chills. No other symptoms to report. PFSH Past Medical History Arthritis: Yes (OSTEOARTHRITIS) Cancer: Yes (metastatic lung cancer) Cardiovascular Problems: No High Cholesterol: Yes (PT STATES WNL LIMITS) Chemotherapy: Yes (last dose 5 weeks ago) COPD: Yes Diabetes: Yes Diminished Hearing: No Endocrine: No Gastrointestinal Disorders: Yes (nausea) GERD: Yes Hepatitis: No Hiatal Hernia: No Hypertension: Yes (PT STATES NOW WNL) Immune Disorder: No Musculoskeletal: Yes (SPINE DISEASE (DEGENERATIVE DISC)) Neurologic: No Psychiatric: No Reproductive: No Respiratory: Yes (lung cancer) Thyroid Disease: No ?: Not Menopausal: Yes : 3 Para: 2 : 1 Past Surgical History Abdominal Surgery: No AICD: No Cardiac Surgery: No Section: Yes Ear Surgery: No Endocrine Surgery: No Eye Surgery: No Genitourinary Surgery: No Gynecologic Surgery: Yes (C SECTION) Joint Replacement: No Oral Surgery: No Pacemaker: No Thoracic Surgery: No Other Surgery: Yes (RIGHT THUMB DEBRIDEMENT) Family History Family Hypercholesterolemia: Yes (FATHER) Social History Alcohol Use: No Tobacco Use: Yes (1 PPD) Substance Use: No Allergies-Medications (Allergen,Severity, Reaction): Coded Allergies: No Known Allergies (Verified , 09/19/16) Reported Meds & Prescriptions Reported Meds & Active Scripts Active Reported Pantoprazole (Pantoprazole Sodium) 20 Mg Tab 20 Mg PO DAILY Zofran (Ondansetron HCl) 8 Mg Tab 8 Mg PO TID Flexeril (Cyclobenzaprine HCl) 10 Mg Tab 10 Mg PO BID Atenolol 25 Mg Tab 25 Mg PO DAILY Ms Contin (Morphine Sulfate) 60 Mg Tab 60 Mg PO BID Oxycodone ER (Oxycodone HCl) 30 Mg Tab 30 Mg PO Q12HR Review of Systems Except as stated in HPI: all other systems reviewed are Neg Physical Exam Narrative GENERAL: Chronically Ill-appearing female patient, ambulatory SKIN: Focused skin assessment warm/dry. Jaundice, dusky HEAD: Atraumatic. Normocephalic. EYES: Pupils equal and round. scleral icterus. No injection or drainage. ENT: No nasal bleeding or discharge. Mucous membranes pink and moist. NECK: Trachea midline. No JVD. CARDIOVASCULAR: Tachycardic rate and rhythm. RESPIRATORY: No accessory muscle use. Diminished to auscultation. Breath sounds equal bilaterally. GASTROINTESTINAL: Abdomen soft, distended, generalized tenderness. MUSCULOSKELETAL: No obvious deformities. No clubbing. No cyanosis. No edema. NEUROLOGICAL: Awake and alert. No obvious cranial nerve deficits. Motor grossly within normal limits. Normal speech. PSYCHIATRIC: Appropriate mood and affect; insight and judgment normal. Data Data Last Documented VS Vital Signs Date Time Temp Pulse Resp B/P Pulse Ox O2 Delivery O2 Flow Rate FiO2 11/01/16 19:51 98.7 118 18 157/73 94 Room Air Orders Complete Blood Count With Diff (11/01/16 20:10) Comprehensive Metabolic Panel (11/01/16 20:10) Prothrombin Time / Inr (Pt) (11/01/16 20:10) Act Partial Throm Time (Ptt) (11/01/16 20:10) Urinalysis - C+S If Indicated (11/01/16 20:10) Ct Abd/Pel W Iv Contrast(Rout) (11/01/16 20:10) Iv Access Insert/Monitor (11/01/16 20:10) Ecg Monitoring (11/01/16 20:10) Oximetry (11/01/16 20:10) Morphine Inj (Morphine Inj) (11/01/16 20:15) Ondansetron Inj (Zofran Inj) (11/01/16 20:15) Sodium Chloride 0.9% Flush (Ns Flush) (11/01/16 20:15) Electrocardiogram (11/01/16 20:10) Labs Laboratory Tests Test 11/01/16 20:38 White Blood Count 12.1 TH/MM3 Red Blood Count 2.79 MIL/MM3 Hemoglobin 9.3 GM/DL Hematocrit 28.9 % Mean Corpuscular Volume 103.7 FL Mean Corpuscular Hemoglobin 33.4 PG Mean Corpuscular Hemoglobin 32.2 % Concent Red Cell Distribution Width 27.9 % Platelet Count 108 TH/MM3 Mean Platelet Volume 8.6 FL Neutrophils (%) (Auto) 74.6 % Lymphocytes (%) (Auto) 11.1 % Monocytes (%) (Auto) 14.2 % Eosinophils (%) (Auto) 0.0 % Basophils (%) (Auto) 0.1 % Neutrophils # (Auto) 9.0 TH/MM3 Lymphocytes # (Auto) 1.3 TH/MM3 Monocytes # (Auto) 1.7 TH/MM3 Eosinophils # (Auto) 0.0 TH/MM3 Basophils # (Auto) 0.0 TH/MM3 CBC Comment AUTO DIFF Differential Comment AUTO DIFF CONFIRMED Platelet Estimate LOW Platelet Morphology Comment ENLARGED Polychromasia 2.0 % Basophilic Stippling FAINT Prothrombin Time 11.4 SEC Prothromb Time International 1.0 RATIO Ratio Activated Partial 21.8 SEC Thromboplast Time Urine Color YELLOW Urine Turbidity CLEAR Urine pH 6.0 Urine Specific [place] 1.011 Urine Protein NEG mg/dL Urine Glucose (UA) NEG mg/dL Urine Ketones NEG mg/dL Urine Occult Blood NEG Urine Nitrite NEG Urine Bilirubin NEG Urine Urobilinogen LESS THAN 2.0 MG/DL Urine Leukocyte Esterase NEG Urine WBC LESS THAN 1 /hpf Urine Squamous Epithelial <1 /hpf Cells Urine Mucus FEW /lpf Microscopic Urinalysis Comment CULT NOT INDICATED Sodium Level 136 MEQ/L Potassium Level 4.1 MEQ/L Chloride Level 100 MEQ/L Carbon Dioxide Level 26.0 MEQ/L Anion Gap 10 MEQ/L Blood Urea Nitrogen 25 MG/DL Creatinine 1.41 MG/DL Estimat Glomerular Filtration 39 ML/MIN Rate Random Glucose 167 MG/DL Calcium Level 8.6 MG/DL Total Bilirubin 3.2 MG/DL Aspartate Amino Transf 367 U/L (AST/SGOT) Alanine Aminotransferase 89 U/L (ALT/SGPT) Alkaline Phosphatase 510 U/L Total Protein 7.0 GM/DL Albumin 2.7 GM/DL [facility] Medical Decision Making Medical Screen Exam Complete: Yes Emergency Medical Condition: Yes Medical Record Reviewed: Yes Differential Diagnosis Ascites versus metastatic disease versus obstruction versus constipation Narrative Course 56 year-old female presents versus prominent for evaluation abdominal pain and worsening abdominal girth. Patient is noted to have distended, generalized tender abdomen. Lab work and CT imaging is ordered. 2300 patient is signed out to Dr. Rodriguez. Disposition will pend her judgment Condition: Stable Jenelle Rodrigues Nov 01, 2016 20:12
[2016-11-01] MEDS ORDERED: ONDANSETRON HCL 4 MG/2 ML VIAL IVP ONE (20:15)
[2016-11-01] MEDS ORDERED: SODIUM CHLORIDE 0.9% FLUSH 10 ML FLUSH IV FLUSH PRN (20:15)
[2016-11-01] MEDS ORDERED: MORPHINE SULFATE 4 MG/ML INJ IV PUSH ONE ×2 (20:15→23:30)
[2016-11-01 21:05] LABS: BASOPHIL % 0.1 % (0.0-2.0); HEMATOCRIT 28.9 % (35.0-46.0); LYMPH % 11.1 % (9.0-44.0); LYMPHOCYTE # 1.3 TH/MM3 (1.0-4.8); MEAN CELL VOLUME 103.7 FL (80.0-100.0); MEAN CORPUSCULAR HEMOGLOBIN 33.4 PG (27.0-34.0); MEAN CORPUSCULAR HGB CONC 32.2 % (32.0-36.0); MONO % 14.2 % (0.0-8.0); NEUT % 74.6 % (16.0-70.0); PLATELET COUNT 108 TH/MM3 (150-450); RED BLOOD COUNT 2.79 MIL/MM3 (4.00-5.30); RED CELL DISTRIBUTION WIDTH 27.9 % (11.6-17.2); WHITE BLOOD COUNT 12.1 TH/MM3 (4.0-11.0)
[2016-11-01 21:08] LABS: HEMO FLAGS AUTO DIFF
[2016-11-01 21:10] LABS: BLOOD, URINE NEG (NEG); COMMENT (UR) CULT NOT INDICATED; CULTURE IF INDICATED CULT NOT INDICATED; GLUCOSE,URINE NEG (NEG); KETONE, URINE NEG (NEG); MUCUS URINE FEW /lpf (OCC); NITRITE,URINE NEG (NEG); SQUAMOUS EPITHELIAL CELL URINE <1 /hpf (0-5); URINE COLOR YELLOW (YELLW/STRAW)
[2016-11-01 21:13] LABS: APTT (PATIENT) 21.8 SEC (24.3-30.1); PROTHROMBIN TIME - PATIENT 11.4 SEC (9.8-11.6)
[2016-11-01 21:33] LABS: ANION GAP 10 MEQ/L (5-15); AST (GOT) 367 U/L (15-37); BLOOD UREA NITROGEN 25 MG/DL (7-18); CHLORIDE 100 MEQ/L (98-107); GLOMERULAR FILTRATION RATE 39 ML/MIN (>89); POTASSIUM 4.1 MEQ/L (3.5-5.1); SODIUM (NA) 136 MEQ/L (136-145)
[2016-11-01 21:34] LABS: ALT (GPT) 89 U/L (10-53)
[2016-11-01 21:36] LABS: ALKALINE PHOSPHATASE 510 U/L (45-117); TOTAL BILIRUBIN ADULT 3.2 MG/DL (0.2-1.0)
[2016-11-01 21:40] LABS: PLATELET ESTIMATE SMEAR LOW (NORMAL); PLATELET MORPHOLOGY ENLARGED (NORMAL); SCAN/DIFF AUTO DIFF CONFIRMED
[2016-11-01] MEDS ORDERED: IOHEXOL 350 MG/ML 10 ML VIAL (for RAD DIAG) IV ONE (23:35)
--- NOTE | 2016-11-01 23:49 | RADRPT ---
EXAM DATE/TIME: 11/01/2016 23:29 [place] COMPARISON: No previous studies available for comparison. INDICATIONS : Abdominal swelling x2 week. Nausea and constipation. History of lung cancer. IV CONTRAST: 50 cc Omnipaque 350 (iohexol) IV ORAL CONTRAST: No oral contrast ingested. RADIATION DOSE: 9.96 CTDIvol (mGy) MEDICAL HISTORY : Diabetes mellitus type 2. Gastroesophageal reflux disease. Chronic obstructive pulmonary disease.Lung cancer. SURGICAL HISTORY : section. ENCOUNTER: Initial ACUITY: 1 week PAIN SCALE: 10/10 LOCATION: Bilateral abdomen TECHNIQUE: Volumetric scanning of the abdomen and pelvis was performed. Using automated exposure control and ad justment of the mA and/or kV according to patient size, radiation dose was kept as low as reasonably achievable to obtain optimal diagnostic quality images. DICOM format image data is available electro nically for review and comparison. FINDINGS: LOWER LUNGS: The visualized lower lungs are clear. LIVER: Enlarging liver with multiple low attenuation metastatic lesions seen, too numerous to count and wors ening from previous study. There is minimal ascites. There is no dilation of the biliary tree. SPLEEN: Normal size without lesion. PANCREAS: Within normal limits. KIDNEYS: Normal in size and shape. There is a low lying right kidney. There is no mass, stone or hydronephrosi s. ADRENAL GLANDS: Within normal limits. VASCULAR: There is no aortic aneurysm. BOWEL/MESENTERY: The stomach, small bowel, and colon demonstrate no acute abnormality. There is no free intraperitone al air or fluid. ABDOMINAL WALL: Within normal limits. RETROPERITONEUM: There is no lymphadenopathy. BLADDER: No wall thickening or mass. REPRODUCTIVE: Within normal limits. INGUINAL: There is no lymphadenopathy or hernia. MUSCULOSKELETAL: Scattered sclerotic lesions in the axial skeleton.. CONCLUSION: 1. Worsening metastatic disease to the liver. 2. Minimal ascites. 3. Sclerotic bony metastasis. Willis Ayala MD on November 01, 2016 at 23:44 Board Certified Radiologist. This report was verified electronically.
--- NOTE | 2016-11-02 00:31 | PD ---
Physical Exam Narrative I, Dr. Rodriguez, have reviewed the advance practice practitioner's documentation and am in agreement, met with the patient face to face, made the diagnosis, and the medical decision making was done by me. *My assessment and Findings: Patient is a 56-year-old female with history of metastatic lung cancer, comes in complaining of abdominal pain. Exam shows enlarged abdomen, mildly diffusely tender. Data Data Last Documented VS Vital Signs Date Time Temp Pulse Resp B/P Pulse Ox O2 Delivery O2 Flow Rate FiO2 11/02/16 01:18 100 18 140/69 95 11/01/16 19:51 98.7 Room Air Orders Complete Blood Count With Diff (11/01/16 20:10) Comprehensive Metabolic Panel (11/01/16 20:10) Prothrombin Time / Inr (Pt) (11/01/16 20:10) Act Partial Throm Time (Ptt) (11/01/16 20:10) Urinalysis - C+S If Indicated (11/01/16 20:10) Ct Abd/Pel W Iv Contrast(Rout) (11/01/16 20:10) Iv Access Insert/Monitor (11/01/16 20:10) Ecg Monitoring (11/01/16 20:10) Oximetry (11/01/16 20:10) Morphine Inj (Morphine Inj) (11/01/16 20:15) Ondansetron Inj (Zofran Inj) (11/01/16 20:15) Sodium Chloride 0.9% Flush (Ns Flush) (11/01/16 20:15) Electrocardiogram (11/01/16 20:10) Morphine Inj (Morphine Inj) (11/01/16 23:30) Iohexol 350 Inj (Omnipaque 350 Inj) (11/01/16 23:35) Heparin Central Flush (Heparin Central F (11/02/16 01:00) Labs Laboratory Tests Test 11/01/16 20:38 White Blood Count 12.1 TH/MM3 Red Blood Count 2.79 MIL/MM3 Hemoglobin 9.3 GM/DL Hematocrit 28.9 % Mean Corpuscular Volume 103.7 FL Mean Corpuscular Hemoglobin 33.4 PG Mean Corpuscular Hemoglobin 32.2 % Concent Red Cell Distribution Width 27.9 % Platelet Count 108 TH/MM3 Mean Platelet Volume 8.6 FL Neutrophils (%) (Auto) 74.6 % Lymphocytes (%) (Auto) 11.1 % Monocytes (%) (Auto) 14.2 % Eosinophils (%) (Auto) 0.0 % Basophils (%) (Auto) 0.1 % Neutrophils # (Auto) 9.0 TH/MM3 Lymphocytes # (Auto) 1.3 TH/MM3 Monocytes # (Auto) 1.7 TH/MM3 Eosinophils # (Auto) 0.0 TH/MM3 Basophils # (Auto) 0.0 TH/MM3 CBC Comment AUTO DIFF Differential Comment AUTO DIFF CONFIRMED Platelet Estimate LOW Platelet Morphology Comment ENLARGED Polychromasia 2.0 % Basophilic Stippling FAINT Prothrombin Time 11.4 SEC Prothromb Time International 1.0 RATIO Ratio Activated Partial 21.8 SEC Thromboplast Time Urine Color YELLOW Urine Turbidity CLEAR Urine pH 6.0 Urine Specific [place] 1.011 Urine Protein NEG mg/dL Urine Glucose (UA) NEG mg/dL Urine Ketones NEG mg/dL Urine Occult Blood NEG Urine Nitrite NEG Urine Bilirubin NEG Urine Urobilinogen LESS THAN 2.0 MG/DL Urine Leukocyte Esterase NEG Urine WBC LESS THAN 1 /hpf Urine Squamous Epithelial <1 /hpf Cells Urine Mucus FEW /lpf Microscopic Urinalysis Comment CULT NOT INDICATED Sodium Level 136 MEQ/L Potassium Level 4.1 MEQ/L Chloride Level 100 MEQ/L Carbon Dioxide Level 26.0 MEQ/L Anion Gap 10 MEQ/L Blood Urea Nitrogen 25 MG/DL Creatinine 1.41 MG/DL Estimat Glomerular Filtration 39 ML/MIN Rate Random Glucose 167 MG/DL Calcium Level 8.6 MG/DL Total Bilirubin 3.2 MG/DL Aspartate Amino Transf 367 U/L (AST/SGOT) Alanine Aminotransferase 89 U/L (ALT/SGPT) Alkaline Phosphatase 510 U/L Total Protein 7.0 GM/DL Albumin 2.7 GM/DL MDM Supervised Visit with VALERIE: Yes Narrative Course Labs show no acute abnormalities. CT abdomen and pelvis shows metastasis to the liver. There is very minimal ascites on the CT. Patient feels better after pain medicine. She is advised follow-up with her doctors. Advised to return to the ED as a burning worsening symptoms. She says she has pain medicine at home, does not require any prescriptions at this time. Diagnosis Primary Impression: Abdominal pain Qualified Code: R10.84 - Generalized abdominal pain Additional Impression: Liver metastasis Patient Instructions: Abdominal Pain (ED), General Instructions Additional Instruction: Take pain medicine as needed. Follow up with your doctor. Return to the ED as needed for any worsening symptoms. Disposition: 01 DISCHARGE HOME Condition: Stable Jane Rodriguez MD Nov 02, 2016 00:31
[2016-11-02 01:18] VITALS: BP 140/69
== END 2016-11-02 01:20 | disposition home or self-care (01) ==
LOC: NEPE 19:49
DX: R10.84 Generalized abdominal pain (principal); C22.8 Malignant neoplasm of liver, primary, unspecified as to type; R18.8 Other ascites; C34.90 Malignant neoplasm of unspecified part of unspecified bronchus or lung; R11.0 Nausea; K59.00 Constipation, unspecified; K74.60 Unspecified cirrhosis of liver; E11.9 Type 2 diabetes mellitus without complications; F17.200 Nicotine dependence, unspecified, uncomplicated
CPT/HCPCS: 74177; 80053; 81001; 85025; 85610; 85730; 96374; 96375; 99285; J1642; J2270; J2405; Q9967

== ENCOUNTER 2016-11-06 15:07 | Observation (INO) | payer MEDICARE, OTHER ==
[2016-11-06] VITALS (7 sets, daily range): BP systolic 123–137; BP diastolic 60–66; PULSE 85–95; RESP 15–18; TEMP 97.8–98.8; O2SAT 94–99
[~2016-11-06] VITALS: Ht 160 cm; Wt 70.0 kg
[~2016-11-06 15:07] MED LIST changes: -MS C60TA2 PO
--- NOTE | 2016-11-06 15:16 | PD ---
Physical Exam Date Seen by Provider: Nov 06, 2016 Time Seen by Provider: 15:13 Narrative 56 YOWF C/O ABD PAIN PAIN . H/O SMALL CELL LUNG CA WITH METS TO THE LIVER.FEELING MORE DISORIENTATED VS REVIEWED WAITING FOR BED PLACEMENT Data Data Last Documented VS Vital Signs Date Time Temp Pulse Resp B/P Pulse Ox O2 Delivery O2 Flow Rate FiO2 11/06/16 15:08 98.3 95 15 136/60 96 MDM Supervised Visit with VALERIE: Gelacio Carreno Nov 06, 2016 15:15
[2016-11-06] MEDS ORDERED: ONDANSETRON HCL 4 MG/2 ML VIAL IVP ONE (17:00)
[2016-11-06] MEDS ORDERED: SODIUM CHLORIDE 0.9% FLUSH 10 ML FLUSH IV FLUSH PRN ×2 (17:00→20:00)
[2016-11-06] MEDS ORDERED: MORPHINE SULFATE 4 MG/ML INJ IV PUSH ONE (17:00)
--- NOTE | 2016-11-06 17:06 | PD ---
HPI Chief Complaint: Abdominal Pain Time Seen by Provider: 17:00 Travel History International Travel<30 days: No Contact w/Intl Traveler<30days: No Traveled to known affect area: No History of Present Illness HPI Patient comes in complaining of worsening of abdominal pain. Patient states she feels more distended than normal. Patient states she went to chemotherapy today which seemed to help some. Patient reports her last normal bowel movement was 3 days ago without blood. Patient states she had an outpatient ultrasound done previously for this showed nothing but was sent to the ER by her oncologist today for further treatment and evaluation. Patient states she also has been having some swelling in her right foot that began 2 days ago denies any pain or known trauma with this. Patient reports associated shortness of breath and chronic nausea. Patient states she's been feeling weak as well. Patient has pain is a pressure-like in nature throughout her abdomen without radiation. Palpating it makes it worse. Denies any fevers or chest pain. PFSH Past Medical History Arthritis: Yes (OSTEOARTHRITIS) Cancer: Yes (metastatic lung cancer) Cardiovascular Problems: No High Cholesterol: Yes (PT STATES WNL LIMITS) Chemotherapy: Yes (last dose 5 weeks ago) COPD: Yes Diabetes: Yes Diminished Hearing: No Endocrine: No Gastrointestinal Disorders: Yes (nausea) GERD: Yes Hepatitis: No Hiatal Hernia: No Hypertension: Yes (PT STATES NOW WNL) Immune Disorder: No Musculoskeletal: Yes (SPINE DISEASE (DEGENERATIVE DISC)) Neurologic: No Psychiatric: No Reproductive: No Respiratory: Yes (lung cancer) Thyroid Disease: No Menopausal: Yes : 3 Para: 2 : 1 Past Surgical History Abdominal Surgery: No AICD: No Cardiac Surgery: No Section: Yes Ear Surgery: No Endocrine Surgery: No Eye Surgery: No Genitourinary Surgery: No Gynecologic Surgery: Yes (C SECTION) Joint Replacement: No Oral Surgery: No Pacemaker: No Thoracic Surgery: No Other Surgery: Yes (RIGHT THUMB DEBRIDEMENT) Family History Family Hypercholesterolemia: Yes (FATHER) Social History Alcohol Use: No Tobacco Use: Yes (1 PPD) Substance Use: No Allergies-Medications (Allergen,Severity, Reaction): Coded Allergies: No Known Allergies (Verified , 11/06/16) Reported Meds & Prescriptions Reported Meds & Active Scripts Active Reported Pantoprazole (Pantoprazole Sodium) 20 Mg Tab 20 Mg PO DAILY Zofran (Ondansetron HCl) 8 Mg Tab 8 Mg PO TID Flexeril (Cyclobenzaprine HCl) 10 Mg Tab 10 Mg PO BID Atenolol 25 Mg Tab 25 Mg PO DAILY Oxycodone ER (Oxycodone HCl) 30 Mg Tab 30 Mg PO Q12HR Review of Systems Except as stated in HPI: all other systems reviewed are Neg Physical Exam Narrative GENERAL: Well-developed, well nourished, in no acute distress, and ill appearing , but nontoxic.. SKIN: Focused skin assessment warm and dry. HEAD: Atraumatic. Normocephalic. EYES: Pupils equal and round. EOMI. No scleral icterus. No injection or drainage. ENT: No nasal bleeding or discharge. Mucous membranes pink and moist. NECK: Trachea midline. Supple. No nuclear rigidity. CARDIOVASCULAR: Regular rate and rhythm. No murmur appreciated. RESPIRATORY: No accessory muscle use. No respiratory distress. Decreased breath sounds throughout. GASTROINTESTINAL: Abdomen soft, tender, distended, and no guarding. Hepatic and splenic margins not palpable. Normal bowel sounds 4. No pulsatile mass. MUSCULOSKELETAL: No obvious deformities. No clubbing. No cyanosis. 1+ nonpitting edema right lower extremity. Full range of motion. NEUROLOGICAL: Awake and alert. No obvious cranial nerve deficits. Motor grossly within normal limits. Normal speech. PSYCHIATRIC: Appropriate mood and affect; insight and judgment normal. Data Data Last Documented VS Vital Signs Date Time Temp Pulse Resp B/P Pulse Ox O2 Delivery O2 Flow Rate FiO2 11/06/16 19:11 16 11/06/16 18:00 86 131/63 97 Room Air 11/06/16 15:08 98.3 Orders Complete Blood Count With Diff (11/06/16 16:51) Comprehensive Metabolic Panel (11/06/16 16:51) Lipase (11/06/16 16:51) Prothrombin Time / Inr (Pt) (11/06/16 16:51) Act Partial Throm Time (Ptt) (11/06/16 16:51) Urinalysis - C+S If Indicated (11/06/16 16:51) Iv Access Insert/Monitor (11/06/16 16:51) Ecg Monitoring (11/06/16 16:51) Oximetry (11/06/16 16:51) Morphine Inj (Morphine Inj) (11/06/16 17:00) Ondansetron Inj (Zofran Inj) (11/06/16 17:00) Sodium Chloride 0.9% Flush (Ns Flush) (11/06/16 17:00) Us Leg Venous Doppler (11/06/16 16:51) Type And Screen (11/06/16 19:18) Red Blood Cells (Rbc) (11/06/16 19:18) Blood Product Administration .UPON TRANSFUSION (11/06/16 19:18) Sodium Chloride 0.9% Flush (Ns Flush) (11/06/16 19:30) Consult Hematology (11/06/16 ) Admit Order (Ed Use Only) (11/06/16 19:37) Labs Laboratory Tests Test 11/06/16 17:30 White Blood Count 12.0 TH/MM3 Red Blood Count 2.01 MIL/MM3 Hemoglobin 7.0 GM/DL Hematocrit 21.2 % Mean Corpuscular Volume 105.5 FL Mean Corpuscular Hemoglobin 34.8 PG Mean Corpuscular Hemoglobin 33.0 % Concent Red Cell Distribution Width 28.3 % Platelet Count 91 TH/MM3 Mean Platelet Volume 9.1 FL Neutrophils (%) (Auto) % Lymphocytes (%) (Auto) % Monocytes (%) (Auto) % Eosinophils (%) (Auto) % Basophils (%) (Auto) % Neutrophils # (Auto) TH/MM3 Lymphocytes # (Auto) TH/MM3 Monocytes # (Auto) TH/MM3 Eosinophils # (Auto) TH/MM3 Basophils # (Auto) TH/MM3 CBC Comment AUTO DIFF Differential Total Cells 100 Counted Neutrophils % (Manual) 77 % Band Neutrophils % 11 % Lymphocytes % 11 % Monocytes % 1 % Neutrophils # (Manual) 10.6 TH/MM3 Differential Comment FINAL DIFF MANUAL Platelet Estimate LOW Platelet Morphology Comment NORMAL Spherocytes 1+ Ovalocytes 1+ Prothrombin Time 11.9 SEC Prothromb Time International 1.1 RATIO Ratio Activated Partial 24.8 SEC Thromboplast Time Sodium Level 139 MEQ/L Potassium Level 4.6 MEQ/L Chloride Level 105 MEQ/L Carbon Dioxide Level 25.5 MEQ/L Anion Gap 9 MEQ/L Blood Urea Nitrogen 32 MG/DL Creatinine 1.02 MG/DL Estimat Glomerular Filtration 56 ML/MIN Rate Random Glucose 154 MG/DL Calcium Level 8.6 MG/DL Total Bilirubin 5.2 MG/DL Aspartate Amino Transf 984 U/L (AST/SGOT) Alanine Aminotransferase 119 U/L (ALT/SGPT) Alkaline Phosphatase 500 U/L Total Protein 6.5 GM/DL Albumin 2.4 GM/DL Lipase 434 U/L MDM Medical Decision Making Medical Screen Exam Complete: Yes Emergency Medical Condition: Yes Medical Record Reviewed: Yes Interpretation(s) Ultrasound or by the radiologist shows: Negative for deep venous thrombosis. 2 cm popliteal cyst. Differential Diagnosis Electrolyte abnormality, uncontrolled abdominal pain, worsening metastatic disease, DVT, other Narrative Course Patient was seen and examined. IV was established. Patient states on ekg monitor tech. Initial laboratory and radiological studies were ordered. Discussed patient with Dr. Naidu, who saw and evaluated the patient and is in agreement with plan of care. 1829 patient reassessed. Discussed ultrasound findings with patient. Patient reports she is feeling more comfortable after receiving pain medications in the emergency department. Awaiting lab results. 1914 discussed all findings and plan of care with patient, who wants to stay for pain control and transfusion. Discussed disposition with Dr. Naidu, who is agreement with disposition. Discussed patient with hospitalist who is agreeable to admit the patient. Physician Communication Physician Communication [address] Hoffmann, oncologist on-call for Dr. Mccall, erythematous patient can be admitted and transfused 1 unit of RBCs and for pain control or patient can follow up and be transfused tomorrow along with outpatient follow-up. If patient is admitted he will have Dr. Mccall see the patient tomorrow. [address] Franco, who is agreeable to admit the patient for Dr. Sanchez. Diagnosis Primary Impression: Abdominal pain Qualified Code: R10.9 - Abdominal pain, unspecified abdominal location Additional Impressions: Liver metastasis Anemia Qualified Code: D64.9 - Anemia, unspecified type Admitting Information Admitting Physician Requests: Observation Condition: Stable Ant Busch Nov 06, 2016 17:06
--- NOTE | 2016-11-06 17:15 | PD ---
Data Data Last Documented VS Vital Signs Date Time Temp Pulse Resp B/P Pulse Ox O2 Delivery O2 Flow Rate FiO2 11/06/16 19:11 16 11/06/16 18:00 86 131/63 97 Room Air 11/06/16 15:08 98.3 Orders Complete Blood Count With Diff (11/06/16 16:51) Comprehensive Metabolic Panel (11/06/16 16:51) Lipase (11/06/16 16:51) Prothrombin Time / Inr (Pt) (11/06/16 16:51) Act Partial Throm Time (Ptt) (11/06/16 16:51) Urinalysis - C+S If Indicated (11/06/16 16:51) Iv Access Insert/Monitor (11/06/16 16:51) Ecg Monitoring (11/06/16 16:51) Oximetry (11/06/16 16:51) Morphine Inj (Morphine Inj) (11/06/16 17:00) Ondansetron Inj (Zofran Inj) (11/06/16 17:00) Sodium Chloride 0.9% Flush (Ns Flush) (11/06/16 17:00) Us Leg Venous Doppler (11/06/16 16:51) Type And Screen (11/06/16 19:18) Red Blood Cells (Rbc) (11/06/16 19:18) Blood Product Administration .UPON TRANSFUSION (11/06/16 19:18) Sodium Chloride 0.9% Flush (Ns Flush) (11/06/16 19:30) Consult Hematology (11/06/16 ) Admit Order (Ed Use Only) (11/06/16 19:37) Labs Laboratory Tests Test 11/06/16 11/06/16 11/06/16 17:30 19:10 19:25 White Blood Count 12.0 TH/MM3 Red Blood Count 2.01 MIL/MM3 Hemoglobin 7.0 GM/DL Hematocrit 21.2 % Mean Corpuscular Volume 105.5 FL Mean Corpuscular Hemoglobin 34.8 PG Mean Corpuscular Hemoglobin 33.0 % Concent Red Cell Distribution Width 28.3 % Platelet Count 91 TH/MM3 Mean Platelet Volume 9.1 FL Neutrophils (%) (Auto) % Lymphocytes (%) (Auto) % Monocytes (%) (Auto) % Eosinophils (%) (Auto) % Basophils (%) (Auto) % Neutrophils # (Auto) TH/MM3 Lymphocytes # (Auto) TH/MM3 Monocytes # (Auto) TH/MM3 Eosinophils # (Auto) TH/MM3 Basophils # (Auto) TH/MM3 CBC Comment AUTO DIFF Differential Total Cells 100 Counted Neutrophils % (Manual) 77 % Band Neutrophils % 11 % Lymphocytes % 11 % Monocytes % 1 % Neutrophils # (Manual) 10.6 TH/MM3 Differential Comment FINAL DIFF MANUAL Platelet Estimate LOW Platelet Morphology Comment NORMAL Spherocytes 1+ Ovalocytes 1+ Prothrombin Time 11.9 SEC Prothromb Time International 1.1 RATIO Ratio Activated Partial 24.8 SEC Thromboplast Time Sodium Level 139 MEQ/L Potassium Level 4.6 MEQ/L Chloride Level 105 MEQ/L Carbon Dioxide Level 25.5 MEQ/L Anion Gap 9 MEQ/L Blood Urea Nitrogen 32 MG/DL Creatinine 1.02 MG/DL Estimat Glomerular Filtration 56 ML/MIN Rate Random Glucose 154 MG/DL Calcium Level 8.6 MG/DL Total Bilirubin 5.2 MG/DL Aspartate Amino Transf 984 U/L (AST/SGOT) Alanine Aminotransferase 119 U/L (ALT/SGPT) Alkaline Phosphatase 500 U/L Total Protein 6.5 GM/DL Albumin 2.4 GM/DL Lipase 434 U/L Urine Color DARK-YELLOW Urine Turbidity HAZY Urine pH 5.5 Urine Specific [place] 1.022 Urine Protein 30 mg/dL Urine Glucose (UA) NEG mg/dL Urine Ketones NEG mg/dL Urine Occult Blood TRACE Urine Nitrite NEG Urine Bilirubin NEG Urine Urobilinogen 2.0 MG/DL Urine Leukocyte Esterase NEG Urine RBC 1 /hpf Urine WBC 2 /hpf Urine Squamous Epithelial 1 /hpf Cells Urine Bacteria RARE /hpf Urine Mucus FEW /lpf Microscopic Urinalysis Comment CULT NOT INDICATED Blood Type B POSITIVE Antibody Screen NEGATIVE Crossmatch Leukocyte-Reduced Red Blood Cells Blood Bank Comment MDM Supervised Visit with VALERIE: Yes Narrative Course I, Dr. Naidu, have reviewed the advance practice practitioner's documentation and am in agreement, met with the patient face to face, made the diagnosis, and the medical decision making was done by me. *My assessment and Findings: Patient 56-year-old female with a history of lung cancer metastatic to liver presents emergency department for evaluation of abdominal distention and pain. She is evaluated for these symptoms earlier this month with CAT scan. Showing multiple metastatic lesions to her liver. Her labs are unchanged from previous. Abdomen exam is showing distention but nontender no peritoneal signs. She appears comfortable and is quite pleasant. Unfortunately she seems very ill for metastatic disease which appears to be chronic in nature. At this point with her second admission to the emergency department for abdominal pain she was offered admission to the hospital and she is agreeable. We did broach the conversation of hospice with her and she will consider this during admission. Diagnosis Primary Impression: Abdominal pain Qualified Code: R10.9 - Abdominal pain, unspecified abdominal location Admitting Information Admitting Physician Requests: Observation Condition: Stable Larry Naidu MD Nov 06, 2016 17:15
[2016-11-06 18:21] LABS: APTT (PATIENT) 24.8 SEC (24.3-30.1); INTERNATIONAL NORMALIZED RATIO 1.1 RATIO; PROTHROMBIN TIME - PATIENT 11.9 SEC (9.8-11.6)
--- NOTE | 2016-11-06 18:29 | RADRPT ---
EXAM DATE/TIME: 11/06/2016 17:57 [facility] COMPARISON: No previous studies available for comparison. INDICATIONS : Right leg swelling. MEDICAL HISTORY : Gastroesophageal reflux disease. Arthritis. Glasses. Lung cancer. COPD. Degenerative disc disease . Diabetes. Chemotherapy. Metastatic liver disease. SURGICAL HISTORY : section. Right thumb surgery. ENCOUNTER: Initial ACUITY: 2 day PAIN SCORE: 4/10 LOCATION: Right leg. TECHNIQUE: Venous ultrasound of the leg was performed from the inguinal ligament to the proximal calf. Real-gabrielle e, color Doppler and spectral tracing, compression and augmentation techniques were used. FINDINGS: There is normal compressibility of the deep venous system from the inguinal region to the proximal ca lf. No echogenic clot is seen in the lumen of the common femoral, femoral, popliteal, and posterior tibial veins. There is a normal response of the venous system to proximal and distal augmentation an d respiration. CONCLUSION: 1. Negative for deep venous thrombosis. 2 cm popliteal cyst. Gelacio Holland MD on November 06, 2016 at 18:26 Board Certified Radiologist. This report was verified electronically.
[2016-11-06 18:30] LABS: ALKALINE PHOSPHATASE 500 U/L (45-117); TOTAL BILIRUBIN ADULT 5.2 MG/DL (0.2-1.0)
[2016-11-06 18:32] LABS: ALT (GPT) 119 U/L (10-53); ANION GAP 9 MEQ/L (5-15); AST (GOT) 984 U/L (15-37); BICARBONATE 25.5 MEQ/L (21.0-32.0); BLOOD UREA NITROGEN 32 MG/DL (7-18); CHLORIDE 105 MEQ/L (98-107); GLOMERULAR FILTRATION RATE 56 ML/MIN (>89); POTASSIUM 4.6 MEQ/L (3.5-5.1); SODIUM (NA) 139 MEQ/L (136-145)
[2016-11-06 18:34] LABS: HEMATOCRIT 21.2 % (35.0-46.0); MEAN CELL VOLUME 105.5 FL (80.0-100.0); MEAN CORPUSCULAR HEMOGLOBIN 34.8 PG (27.0-34.0); PLATELET COUNT 91 TH/MM3 (150-450); RED BLOOD COUNT 2.01 MIL/MM3 (4.00-5.30); RED CELL DISTRIBUTION WIDTH 28.3 % (11.6-17.2)
[2016-11-06 18:49] LABS: HEMO FLAGS AUTO DIFF
[2016-11-06] MEDS ORDERED: SODIUM CHLORIDE 0.9% FLUSH 10 ML FLUSH IVF PRN (19:30)
[2016-11-06 19:40] LABS: BANDS 11 % (0-6); NEUTROPHIL # MANUAL DIFF 10.6 TH/MM3 (1.8-7.7); POLYS (SEG NEUTROPHILS) 77 % (16-70); WBC DIFF SAMPLE 100
[2016-11-06 19:41] LABS: OVALOCYTES 1+ (NORMAL); PLATELET ESTIMATE SMEAR LOW (NORMAL); PLATELET MORPHOLOGY NORMAL (NORMAL); SCAN/DIFF FINAL DIFF MANUAL; SPHEROCYTES 1+ (NORMAL)
[2016-11-06 19:52] LABS: BACTERIA, URINE RARE /hpf; BLOOD, URINE TRACE (NEG); COMMENT (UR) CULT NOT INDICATED; CULTURE IF INDICATED CULT NOT INDICATED; GLUCOSE,URINE NEG (NEG); KETONE, URINE NEG (NEG); MUCUS URINE FEW /lpf (OCC); NITRITE,URINE NEG (NEG); PH, URINE 5.5 (5.0-8.5); SQUAMOUS EPITHELIAL CELL URINE 1 /hpf (0-5); URINE COLOR DARK-YELLOW (YELLW/STRAW)
[2016-11-06] MEDS ORDERED: MORPHINE SULFATE 4 MG/ML INJ IV PUSH PRN (20:00)
[2016-11-06] MEDS ORDERED: NALOXONE HCL 0.4 MG/ML AMP IV PRN (20:00)
[2016-11-06] MEDS ORDERED: ONDANSETRON HCL 4 MG/2 ML VIAL IVP PRN (20:00)
[2016-11-06] MEDS ORDERED: BISACODYL 10 MG SUPP RECTAL PRN (20:00)
[2016-11-06] MEDS ORDERED: LACTULOSE SYRUP 20 GM/30 ML CUP PO PRN (20:00)
[2016-11-06] MEDS ORDERED: SENNOSIDES 8.6 MG TAB PO PRN (20:00)
[2016-11-06] MEDS ORDERED: MAGNESIUM HYDROXIDE SUSP 30 ML CUP PO PRN (20:00)
[2016-11-06] MEDS ORDERED: SODIUM CHLORIDE 0.9% FLUSH 10 ML FLUSH IV FLUSH SCH (21:00)
[2016-11-06] MEDS: DOCUSATE SODIUM 50 MG/SENNA 8.6 MG TAB PO SCH (22:37)
[2016-11-06] MEDS: CYCLOBENZAPRINE HCL 10 MG TAB PO SCH (22:37)
[2016-11-06] MEDS: DOCUSATE SODIUM 100 MG CAP PO SCH (22:37)
[2016-11-06] MEDS: oxyCODONE HCL 10 MG CONTROLLED RELEASE TAB PO SCH (22:48)
[2016-11-07] VITALS (8 sets, daily range): BP systolic 121–139; BP diastolic 58–72; PULSE 77–91; RESP 12–17; TEMP 97.2–98.5; O2SAT 92–100
--- NOTE | 2016-11-07 08:48 | HHI.HP ---
HPI Service [facility] Hospitalists Primary Care Physician Pete Alvarez, DO Admission Diagnosis abdominal pain secondary to metastatic disease, anemia Chief Complaint: Abdominal pain Travel History International Travel<30 Days: No Contact w/Intl Traveler <30 Da: No Traveled to Known Affected Are: No History of Present Illness Mrs. 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 She follows with Dr. Mccall. She had received 5 cycles of chemo but it has been held more recently due to myelosuppression. Pt reports that in the last 2 weeks she has had worsening abdominal pain and distension. She was seen in the ED on 11/01/16 with these complaints and a CT Abd/pelvis was performed at that time which noted worsening metastatic disease burden in the liver, minimal ascites, and sclerotic sujey metastasis. Pt was discharged home and she was seen by Dr. Mccall on Thursday (11/03/16) this week and underwent another round of chemo. She did not have any relief of her abd pain or distension and reported back to the ED lat night. Pt is noted to have worsening LFTs over the last few weeks. She also reports bilateral LE edema, worse on the right foot. I spoke with Dr. Mccall this morning and his plan is to keep the patient in the hospital for pain control and reports that he will be changing around her chemotherapy regimen. The patient has an appt at [facility] on Thursday for a second opinion. 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 on chemo with Carboplatin and Etoposide COPD Chronic back pain/Degenerative disk disease HTN Arthritis Anxiety GERD Migraine headaches Depression Past Surgical History Colonoscopy Cesarian section, 1992 Thumb fracture after dog bite Bunionectomy right foot Reported Medications -Pantoprazole 20 Mg PO DAILY -Zofran 8 Mg PO TID -Flexeril 10 Mg PO BID -Atenolol 25 Mg PO DAILY -Oxycodone ER 30 Mg PO Q12HR --Morphine Sulfate ER 60Mg PO DAILY ?Lasix 20mg PO DAILY Allergies: Coded Allergies: No Known Allergies (Verified , 11/06/16) Family History Mother: at 78, emphysema, [place] Father: at 71 from complications with DM, heart disease, CVAs, MIs Brother: at 44 from [place] Brother: CVA at 58 Sister: DM Sister: mental health issues, borderline personality, bipolar mood disorder Social History (+)Hx of Tobacco use, smoked 1 ppd x 40+ years Denies any EtOH or illicit drug use Pt is and lives with her Physical Exam Vital Signs Vital Signs Date Time Temp Pulse Resp B/P Pulse Ox O2 Delivery O2 Flow Rate FiO2 11/07/16 07:43 98.5 84 12 129/60 95 11/07/16 05:50 97.8 91 17 139/72 92 11/07/16 02:12 97.9 86 16 128/64 98 11/07/16 01:47 97.9 86 16 122/58 98 11/07/16 00:57 97.2 87 16 125/60 11/07/16 00:28 97.6 85 16 122/59 99 11/07/16 00:07 97.6 89 16 128/61 100 11/06/16 23:45 97.8 85 16 123/66 99 11/06/16 23:22 98.8 89 16 127/64 94 11/06/16 20:53 98.7 86 17 131/65 95 11/06/16 20:36 98.2 82 16 137/65 96 11/06/16 19:11 16 11/06/16 18:00 86 16 131/63 97 Room Air 11/06/16 17:05 18 11/06/16 17:00 88 18 137/66 98 Room Air 11/06/16 15:08 98.3 95 15 136/60 96 Physical Exam GENERAL: This is a well-nourished, well-developed patient, in no apparent distress. SKIN: Skin is ashen HEENT: Atraumatic. Normocephalic. No temporal or scalp tenderness.Scleral icterus. Airway patent. NECK: Trachea midline, supple, nontender. CARDIO: Regular. RESP: CTA bilaterally. No wheezes, rales, or rhonchi. ABD: +BS, firm, distended, mild diffuse tenderness. EXT: Bilateral LE pitting edema, R>L. NEURO: Awake and alert. Motor and sensory grossly within normal limits. Normal speech. Laboratory Laboratory Tests Test 11/06/16 11/06/16 11/06/16 17:30 19:10 19:25 White Blood Count 12.0 Red Blood Count 2.01 Hemoglobin 7.0 Hematocrit 21.2 Mean Corpuscular Volume 105.5 Mean Corpuscular Hemoglobin 34.8 Mean Corpuscular Hemoglobin 33.0 Concent Red Cell Distribution Width 28.3 Platelet Count 91 Mean Platelet Volume 9.1 Neutrophils (%) (Auto) Lymphocytes (%) (Auto) Monocytes (%) (Auto) Eosinophils (%) (Auto) Basophils (%) (Auto) Neutrophils # (Auto) Lymphocytes # (Auto) Monocytes # (Auto) Eosinophils # (Auto) Basophils # (Auto) CBC Comment AUTO DIFF Differential Total Cells 100 Counted Neutrophils % (Manual) 77 Band Neutrophils % 11 Lymphocytes % 11 Monocytes % 1 Neutrophils # (Manual) 10.6 Differential Comment FINAL DIFF MANUAL Platelet Estimate LOW Platelet Morphology Comment NORMAL Spherocytes 1+ Ovalocytes 1+ Prothrombin Time 11.9 Prothromb Time International 1.1 Ratio Activated Partial 24.8 Thromboplast Time Sodium Level 139 Potassium Level 4.6 Chloride Level 105 Carbon Dioxide Level 25.5 Anion Gap 9 Blood Urea Nitrogen 32 Creatinine 1.02 Estimat Glomerular Filtration 56 Rate Random Glucose 154 Calcium Level 8.6 Total Bilirubin 5.2 Aspartate Amino Transf 984 (AST/SGOT) Alanine Aminotransferase 119 (ALT/SGPT) Alkaline Phosphatase 500 Total Protein 6.5 Albumin 2.4 Lipase 434 Urine Color DARK-YELLOW Urine Turbidity HAZY Urine pH 5.5 Urine Specific [place] 1.022 Urine Protein 30 Urine Glucose (UA) NEG Urine Ketones NEG Urine Occult Blood TRACE Urine Nitrite NEG Urine Bilirubin NEG Urine Urobilinogen 2.0 Urine Leukocyte Esterase NEG Urine RBC 1 Urine WBC 2 Urine Squamous Epithelial 1 Cells Urine Bacteria RARE Urine Mucus FEW Microscopic Urinalysis Comment CULT NOT INDICATED Blood Type B POSITIVE Antibody Screen NEGATIVE Crossmatch Leukocyte-Reduced Red Blood Cells Blood Bank Comment Result Diagram: 8/17/17 1730 8/17/17 1730 Imaging Last Impressions Lower Extremity Ultrasound 11/06/16 1651 Signed Impressions: Service Date/Time: October 17:57 - CONCLUSION: 1. Negative for deep venous thrombosis. 2 cm popliteal cyst. 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 She follows with Dr. Mccall. She had received 5 cycles of chemo but it has been held more recently due to myelosuppression. - Pt presented to the ED with worsening abd pain and distension on 11/06/16. - She was previously seen in the ED on 11/01/16 with these complaints and a CT Abd/pelvis was performed at that time which noted worsening metastatic disease burden in the liver, minimal ascites, and sclerotic sujey metastasis. - Pt was seen by Dr. Mccall on Thursday (11/03/16) this week and underwent another round of chemo. She did not have any relief of her abd pain or distension and reported back to the ED lat night. - Pt has worsening LFTs over the last few weeks and worsening bilateral LE edema , worse on the right foot. - LE US is negative for DVT - Her LFTs elevated is likely obstructive related to her liver mets - She reports that she had a large BM this morning with some relief of her abdominal discomfort. - We will give a dose of IV Lasix this morning and repeat labs in AM to try to gently diurese some of the fluid off of her - Monitor clinical status closely - Pain control PRN - Constipation precautions - I spoke with Dr. Mccall this morning and his plan is to keep the patient in the hospital for pain control and reports that he will be changing around her chemotherapy regimen. - The patient has an appt at [facility] on Thursday for a second opinion. - DVT prophylaxis with Lovenox (2) Small cell carcinoma of left lung Status: Chronic Plan: - See above. (3) Elevated LFTs Status: Acute Plan: - See above. (4) HTN (hypertension) Status: Chronic Plan: - Home meds continued (5) GERD (gastroesophageal reflux disease) Status: Chronic Plan: - PPI (6) Anemia Status: Acute Plan: - Pt received 1 units of PRBCs on 11/06/16 - Monitor closely (7) Thrombocytopenia Status: Chronic Assessment and Plan Patient examined. Assessment and plan formulated with Dana Del Rosario PA-C. I agree with the above. Problem Qualifiers (1) Anemia: Dana Del Rosario Nov 07, 2016 08:48 Laith Ceballos DO Nov 10, 2016 21:10
[2016-11-07] MEDS ORDERED: PANTOPRAZOLE SOD 20 MG DELAYED RELEASE TAB PO SCH (09:00)
[2016-11-07] MEDS ORDERED: ONDANSETRON ODT 4 MG TAB PO SCH (09:00)
[2016-11-07] MEDS ORDERED: ATENOLOL 25 MG TAB PO SCH (09:00)
[2016-11-07] MEDS ORDERED: FUROSEMIDE 20 MG/2 ML VIAL IV PUSH ONE (09:00)
[2016-11-07] MEDS: DOCUSATE SODIUM 100 MG CAP PO SCH (09:14)
[2016-11-07] MEDS: DOCUSATE SODIUM 50 MG/SENNA 8.6 MG TAB PO SCH (09:14)
[2016-11-07] MEDS: CYCLOBENZAPRINE HCL 10 MG TAB PO SCH (09:15)
[2016-11-07] MEDS: oxyCODONE HCL 10 MG CONTROLLED RELEASE TAB PO SCH (09:15)
[2016-11-07] MEDS: ENOXAPARIN SODIUM 30 MG/0.3 ML SYRINGE SQ SCH ×2 (10:51→11:57)
--- NOTE | 2016-11-07 11:01 | MB ---
cc: NEETA VILLANUEVA M.D. DATE OF CONSULTATION: 11/07/2016 REASON FOR CONSULTATION: Consult requested by hospitalist for evaluation of metastatic small cell lung cancer. HISTORY OF PRESENT ILLNESS This is a 56-year-old female. She was diagnosed with metastatic small cell lung cancer in April 2016. The biopsy of the liver mass in May showed a small cell lung cancer. She was started on carboplatin and etoposide chemotherapy with an excellent response. After the five cycle, she had severe myelosuppression the Coumadin was held. During that time her cancer progressed. She was again tried on chemotherapy this past Thursday and this was her sixth cycle. Plan is to change the chemotherapy to cisplatin and Camptosar. The patient came into the emergency room complaining of increased abdominal distension and discomfort. She is not feeling well. She has swelling of both lower legs. The ultrasound of both lower legs does not show any DVTs. She is not feeling well. She has an appointment at [facility] next week Thursday to get second opinion. REVIEW OF SYSTEMS The rest of the review of system is negative. PAST MEDICAL HISTORY 1. Anxiety disorder 2. arthritis 3. Chronic obstructive pulmonary disease 4. Chronic back pain 5. Diabetes mellitus. 6. Hypertension 7. Metastatic small cell lung cancer. PAST SURGICAL HISTORY [id number] placement. ALLERGIES CHANTIX MEDICATIONS Please see EMR FAMILY HISTORY Mother , the cause of is unknown. Father from diabetes mellitus complication. The patient has three brothers, one from cancer. The type is unknown. She has two sisters, one son, and one daughter, all alive and well. SOCIAL HISTORY The patient is . She used to smoke cigarettes one pack a day for 40 years now has quit smoking. She does not drink alcohol. PHYSICAL EXAMINATION: IN GENERAL: This is a well-developed, ill-appearing white female in no apparent distress. VITAL SIGNS: Temperature 98.5, heart rate is 84, blood pressure 129/60. HEAD, EYES, EARS, NOSE, AND THROAT: Pupils equal, round, reactive to light and accommodation, extraocular muscles intact. anicteric. No oral lesions noted. NECK: Neck is supple. LYMPHATICS: There is no cervical, supraclavicular, axillary lymphadenopathy noted. LUNGS: Lungs are clear. No wheezing, rhonchi or rales. HEART: Heart is regular rate and rhythm. ABDOMEN: Abdomen is distended. the liver is palpable is tender. EXTREMITIES: Edema noted. NEUROLOGY: Neurology awake, alert, oriented times three. SKIN: No significant lesions noted. ASSESSMENT 1. Progressive small cell lung cancer currently on palliative chemotherapy, carboplatin and etoposide. Unable to tolerate further chemotherapy due to severe myelosuppression. 2. Severe abdominal distension most likely due to progressive liver cancer but ascites cannot be ruled out at this time. PLAN I have discussed with the patient regarding further treatment plan. I discussed with her that she is unable to tolerate, carboplatin and etoposide chemotherapy due to severe myelosuppression. My recommendation is to change the chemotherapy cisplatin known and Camptosar chemotherapy. She has an appointment at [facility] next week Thursday to get second opinion which I encouraged her to keep that. I have discussed with the nurse practitioner, Ms. Carlin to get the therapeutic paracentesis ultrasound-guided. She is going to put the order and for that. We need to monitor her over the weekend and control her pain. Hopefully she will be able to discharged on Thursday so that she can keep her appointment for Thursday at [place]. Her prognosis remains poor. She has incurable cancer. We hope that she has we will be able to control her pain and she will be able to start second line of chemotherapy with cisplatin and Camptosar. Thank you for asking my opinion. MD TONE Gonzalez/carley /10:01 AM /10:27 AM
[2016-11-07] MEDS ORDERED: NICOTINE 14 MG/24 HR PATCH T-DERMAL ONE (12:00)
[2016-11-08] MEDS ORDERED: NICOTINE 14 MG/24 HR PATCH T-DERMAL SCH (09:00)
[2016-11-08] MEDS ORDERED: REMOVE OLD PATCH T-DERMAL SCH (09:00)
== END 2016-11-07 12:45 | disposition home or self-care (01) ==
LOC: NEPC 15:07 → NEDA 19:39 → NEPGCP 20:47
PROVIDERS: ADMIT Hospitalist; ATTEND Hospitalist
DX: C78.7 Secondary malignant neoplasm of liver and intrahepatic bile duct (principal); C34.92 Malignant neoplasm of unspecified part of left bronchus or lung; G89.3 Neoplasm related pain (acute) (chronic); R10.9 Unspecified abdominal pain; J44.9 Chronic obstructive pulmonary disease, unspecified; I10 Essential (primary) hypertension; M19.90 Unspecified osteoarthritis, unspecified site; F41.9 Anxiety disorder, unspecified; K21.9 Gastro-esophageal reflux disease without esophagitis; D64.9 Anemia, unspecified; F32.9 Major depressive disorder, single episode, unspecified; G89.29 Other chronic pain; M79.89 Other specified soft tissue disorders; E11.9 Type 2 diabetes mellitus without complications; R79.89 Other specified abnormal findings of blood chemistry; D69.6 Thrombocytopenia, unspecified; Z85.118 Personal history of other malignant neoplasm of bronchus and lung; Z79.899 Other long term (current) drug therapy; Z87.891 Personal history of nicotine dependence
CPT/HCPCS: 36430; 80053; 81001; 83690; 85007; 85027; 85610; 85730; 86850; 86900; 86901; 86920; 93971; 96372; 96374; 96375; 99285; G0378; J1650; J1940; J2270; J2405; P9016

== ENCOUNTER 2016-11-16 18:06 | Emergency (ER) | payer MEDICARE, OTHER ==
[2016-11-16] VITALS (7 sets, daily range): BP systolic 82; BP diastolic 41; PULSE 114–136; RESP 24–30; TEMP 99.3; O2SAT 50–100
[~2016-11-16 18:06] MED LIST changes: +CALCIUM CHLORIDE 10% SOLN 1 GRAM/10 ML SYR IV ONE; +DEXTROSE 50% IN WATER 50 ML SYRINGE IV ONE; +DOPamine INJ PREMIX 500 ML IV ONE; +EPINEPHrine HCL (1:10,000) 1 MG/10 ML SYRINGE IV ONE; +SODIUM BICARBONATE 8.4% INJ 50 MEQ/50 ML SYR IV ONE
[2016-11-16] MEDS ORDERED: SODIUM CHLOR 0.9% 1000 ML INJ 1,000 ML IV SCH ×3 (18:22→19:18)
--- NOTE | 2016-11-16 19:01 | PD ---
Data Data Last Documented VS Vital Signs Date Time Temp Pulse Resp B/P (MAP) Pulse Ox O2 Delivery O2 Flow Rate FiO2 11/16/16 18:42 99.3 11/16/16 18:30 30 100 Nasal Cannula 2.00 11/16/16 18:21 136 Orders Orders Electrocardiogram (11/16/16 18:22) Complete Blood Count With Diff (11/16/16 18:22) Comprehensive Metabolic Panel (11/16/16 18:22) Ckmb (Isoenzyme) Profile (11/16/16 18:22) Troponin I (11/16/16 18:22) Prothrombin Time / Inr (Pt) (11/16/16 18:22) Act Partial Throm Time (Ptt) (11/16/16 18:22) Blood Culture (11/16/16 18:22) Urinalysis - C+S If Indicated (11/16/16 18:22) Magnesium (Mg) (11/16/16 18:22) Thyroid Stimulating Hormone (11/16/16 18:22) Chest, Single Ap (11/16/16 18:22) Ct Brain W/O Iv Contrast(Rout) (11/16/16 18:22) Iv Access Insert/Monitor (11/16/16 18:22) Ecg Monitoring (11/16/16 18:22) Oximetry (11/16/16 18:22) Lactic Acid (11/16/16 18:22) Sodium Chlor 0.9% 1000 Ml Inj (Ns 1000 M (11/16/16 18:22) Ammonia (11/16/16 18:29) Vancomycin Inj (Vancomycin Inj) (11/16/16 19:15) Piperacil-Tazo 3.375 Gm Premix (Zosyn 3. (11/16/16 19:15) Sodium Chlor 0.9% 1000 Ml Inj (Ns 1000 M (11/16/16 19:05) MDM Supervised Visit with VALERIE: Yes Narrative Course The history, exam, and medical decision-making in the associated midlevel provider note were completed with my assistance. I reviewed and agree with the findings presented. I attest that I had a [id number] encounter with the patient on the same day, and personally performed and documented my assessment and findings in the medical record. *My assessment and Findings: This is a patient who has metastatic small cell carcinoma to the liver who presents to the emergency department with worsening mental status over the past 5 days, having been bedbound, not eating or drinking and being more confused. She appears acutely ill on exam, tachypneic and encephalopathic. I had a brief goals of care conversation with her . He wanted to defer to his daughter who is coming to the emergency department and he says that she is the power of employee benefits attorney. At this point I suspect the patient is septic. She'll be placed on broad-spectrum antibiotics and given IV hydration. She will most certainly require admission Radha Stewart MD Nov 16, 2016 19:01
--- NOTE | 2016-11-16 19:13 | PD ---
HPI Chief Complaint: Altered Mental Status Time Seen by Provider: 18:19 Travel History International Travel<30 days: No Contact w/Intl Traveler<30days: No Traveled to known affect area: No History of Present Illness HPI 56-year-old female that presents to the ED for evaluation of altered mental status. Patient came here by ambulance for evolution of this. 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 She received chemotherapy about 2 weeks ago. Since family has noted a noticeable decline on her behavior as well as her energy. She is being more lethargic. She doesn't want to eat. In the past couple days she is becoming more and more altered. No fevers chills or sweats. Most of the history is obtained from ambulance as patient is not really able to give us any information. She follows with Dr. Mccall for the cancer. She has no allergies to medication. Very poor historian. She is not really able to tell us anything. PFSH Past Medical History Arthritis: Yes (OSTEOARTHRITIS) Heart Rhythm Problems: No Cancer: Yes (METASTATIC SMALL CELL LUNG CA, SPREAD TO LIVER ) Cardiovascular Problems: No High Cholesterol: Yes Chemotherapy: Yes (NO TREATMENT X 2 WEEKS DUE TO ULCERS IN MOUTH) Congestive Heart Failure: No COPD: Yes Diabetes: No Diminished Hearing: No Endocrine: No Gastrointestinal Disorders: Yes (nausea) GERD: Yes Genitourinary: Yes (bloody urine) Hepatitis: No Hiatal Hernia: No Hypertension: Yes Immune Disorder: No Medical other: Yes (ARTHRITIS) Musculoskeletal: Yes (SPINE DISEASE (DEGENERATIVE DISC)) Neurologic: No Psychiatric: No Reproductive: No Respiratory: Yes (lung cancer) Radiation Therapy: No Sleep Apnea: Yes Thyroid Disease: No ?: Not Menopausal: Yes : 3 Para: 2 : 1 Past Surgical History Abdominal Surgery: No AICD: No Cardiac Surgery: No Section: Yes Ear Surgery: No Endocrine Surgery: No Eye Surgery: No Genitourinary Surgery: No Gynecologic Surgery: Yes (C SECTION) Joint Replacement: No Oral Surgery: No Pacemaker: No Thoracic Surgery: No Other Surgery: Yes (RIGHT THUMB DEBRIDEMENT) Family History Family Hypercholesterolemia: Yes (FATHER) Social History Alcohol Use: No Tobacco Use: Yes (1 PPD) Substance Use: No Allergies-Medications (Allergen,Severity, Reaction): Coded Allergies: No Known Allergies (Verified , 11/16/16) Reported Meds & Prescriptions Reported Meds & Active Scripts Active Reported Promethazine Supp (Promethazine HCl) 25 Mg Supp 25 Mg RECTAL Q6H PRN Magic Mouthwash Adult Liq (Multi-Ingredient Mouthwash/Gargle) 120 Ml Susp 10 Ml SWISH-SWAL ACHS Each 5mL contains: Nystatin 200,000units, Diphenhydramine 4.25mg, Viscous Lidocaine 10mg, Perez syrup 0.8 mL Prochlorperazine Maleate 10 Mg Tab 10 Mg PO DAILY PRN Bumetanide 1 Mg Tab 1 Mg PO BID Morphine ER (Morphine Sulfate) 60 Mg Tab 60 Mg PO BID Zofran (Ondansetron HCl) 8 Mg Tab 8 Mg PO TID Flexeril (Cyclobenzaprine HCl) 10 Mg Tab 10 Mg PO BID Oxycodone ER (Oxycodone HCl) 30 Mg Tab 30 Mg PO Q12HR Review of Systems Except as stated in HPI: all other systems reviewed are Neg Physical Exam Narrative GENERAL: SKIN: Warm and dry. Jaundice noted HEAD: Atraumatic. Normocephalic. EYES: Pupils equal and round 4 mm rest and accommodation. scleral icterus noted. No injection or drainage. ENT: No nasal bleeding or discharge. Mucous membranes pink and moist. Tongue is midline. No uvula deviation. NECK: Trachea midline. No JVD. CARDIOVASCULAR: Regular rate and rhythm. No murmurs, S3, S4. RESPIRATORY: No accessory muscle use. Clear to auscultation. Breath sounds equal bilaterally. GASTROINTESTINAL: Abdomen soft, non-tender, nondistended. Hepatic and splenic margins not palpable. MUSCULOSKELETAL: Extremities without clubbing, cyanosis, or edema. No obvious deformities. Full range of motion of the upper and lower extremities bilaterally. 2+ pulses bilaterally. NEUROLOGICAL: Awake and alert but cannot assess orientation. No obvious cranial nerve deficits. Motor grossly within normal limits. Five out of 5 muscle strength in the arms and legs. Normal speech. PSYCHIATRIC: Altered mood and affect; insight and judgment unable to assess Data Data Last Documented VS Vital Signs Date Time Temp Pulse Resp B/P (MAP) Pulse Ox O2 Delivery O2 Flow Rate FiO2 11/16/16 19:50 114 28 82/41 (55) 100 Nasal Cannula 2.00 11/16/16 18:42 99.3 Orders Orders Electrocardiogram (11/16/16 18:22) Complete Blood Count With Diff (11/16/16 18:22) Comprehensive Metabolic Panel (11/16/16 18:22) Ckmb (Isoenzyme) Profile (11/16/16 18:22) Troponin I (11/16/16 18:22) Prothrombin Time / Inr (Pt) (11/16/16 18:22) Act Partial Throm Time (Ptt) (11/16/16 18:22) Blood Culture (11/16/16 18:22) Urinalysis - C+S If Indicated (11/16/16 18:22) Magnesium (Mg) (11/16/16 18:22) Thyroid Stimulating Hormone (11/16/16 18:22) Chest, Single Ap (11/16/16 18:22) Ct Brain W/O Iv Contrast(Rout) (11/16/16 18:22) Iv Access Insert/Monitor (11/16/16 18:22) Ecg Monitoring (11/16/16 18:22) Oximetry (11/16/16 18:22) Lactic Acid (11/16/16 18:22) Sodium Chlor 0.9% 1000 Ml Inj (Ns 1000 M (11/16/16 18:22) Ammonia (11/16/16 18:29) Vancomycin Inj (Vancomycin Inj) (11/16/16 19:15) Piperacil-Tazo 3.375 Gm Premix (Zosyn 3. (11/16/16 19:15) Sodium Chlor 0.9% 1000 Ml Inj (Ns 1000 M (11/16/16 19:05) Sodium Chlor 0.9% 1000 Ml Inj (Ns 1000 M (11/16/16 19:18) Type And Screen (11/16/16 20:01) Red Blood Cells (Rbc) (11/16/16 20:01) Blood Product Administration .UPON TRANSFUSION (11/16/16 20:01) Sodium Chlor 0.9% 250 Ml Inj (Ns 250 Ml (11/16/16 20:15) Arterial Blood Gas (Abg) (11/16/16 20:03) Etomidate Inj (Amidate Inj) (11/16/16 20:13) Succinylcholine Inj (Quelicin Inj) (11/16/16 20:13) Vecuronium 10 Mg Inj (Norcuron 10 Mg Inj (11/16/16 20:16) Sodium Chloride 0.9... W/Pantoprazole In (11/16/16 21:25) Chest, Single Ap (11/16/16 ) Platelet Pheresis (11/16/16 20:31) Admit Order (Ed Use Only) (11/16/16 20:32) Labs Laboratory Tests Test 11/16/16 18:50 11/16/16 19:40 11/16/16 20:28 Urine Color DARK-YELLOW Urine Turbidity HAZY Urine pH 5.0 Urine Specific [place] 1.018 Urine Protein TRACE mg/dL Urine Glucose (UA) NEG mg/dL Urine Ketones NEG mg/dL Urine Occult Blood MOD Urine Nitrite NEG Urine Bilirubin SMALL Urine Urobilinogen 2.0 MG/DL Urine Leukocyte Esterase NEG Urine RBC 1 /hpf Urine WBC 3 /hpf Urine Hyaline Casts 16 /lpf Microscopic Urinalysis Comment CULT NOT INDICATED White Blood Count 3.2 TH/MM3 Red Blood Count 0.93 MIL/MM3 Hemoglobin 3.6 GM/DL Hematocrit 11.2 % Mean Corpuscular Volume 121.6 FL Mean Corpuscular Hemoglobin 39.0 PG Mean Corpuscular Hemoglobin Concent 32.1 % Red Cell Distribution Width 22.8 % Platelet Count 4 TH/MM3 Mean Platelet Volume 4.4 FL CBC Comment AUTO DIFF Prothrombin Time 24.5 SEC Prothromb Time International Ratio 2.1 RATIO Activated Partial Thromboplast Time 28.8 SEC MDM Medical Decision Making Medical Screen Exam Complete: Yes Emergency Medical Condition: Yes Medical Record Reviewed: Yes Interpretation(s) Last Impressions Head CT 11/16/16 182 Signed Impressions: Service Date/Time: Wednesday, November 16, 2016 19:00 - CONCLUSION: No acute disease. Larry Hollins MD Differential Diagnosis Terminal cancer versus abscess versus liver failure versus altered mental status versus jaundice versus liver cirrhosis versus head bleed Narrative Course 56-year-old female that presents to the ED for evaluation of altered mental status. Patient was properly examined and was found to have signs and symptoms consistent appears to be altered mental status. Possibly from sepsis versus terminal cancer. Patient does appear to be septic on vitals alone. Labs and imaging were ordered. I immediately had my attending Dr. Stewart evaluated the patient who recommends the same. My attending Dr. Stewart did spoke with the family about possible palliative care and what the patient's wishes were for end of life. At the time the power of traffic law attorney was not present who is the daughter. Around 7:30 PM power of traffic law attorney showed up and we were able to have a discussion with her and she follows that the patient herself wanted everything to be done if there is a chance that she can have more time. My attending Dr. Lovett who took over Dr. Stewart came and talked to the patient as well as the family about the risk and benefits of CPR and intubation. Unfortunately before a decision could be made patient became unresponsive and on asystole and CPR was started. Patient was intubated by my attending. Please refer to her note. Patient had a Hemoccult done by me that was positive. Likely GI bleed. Patient does have a history of low platelets. I spoke with Dr. Argueta who will consult on the patient when patient is stable. My attending spoke with Dr. Wilkinson for molybdenum steamer operator who agrees to admission. Around 2100 patient again coded. My attending Dr Adasm took over and CPR was done again. Please refer to her note. H[facility]Prompt Point of Care Internal Pos. & Neg. Controls: Passed Fecal Specimen Occult Blood: Positive Diagnosis Primary Impression: Altered mental status Qualified Codes: R41.82 - Altered mental status, unspecified Additional Impressions: GI bleed Qualified Codes: K92.2 - Gastrointestinal hemorrhage, unspecified Metastatic small cell carcinoma to liver Thrombocytopenia Sepsis Qualified Codes: A41.9 - Sepsis, unspecified organism Admitting Information Admitting Physician Requests: Admit Mannie Moya Nov 16, 2016 19:13
[2016-11-16] MEDS ORDERED: VANCOMYCIN INJ 1,000 MG in SODIUM CHLOR 0.9% 250 ML INJ 250 ML IV ONE (19:15)
[2016-11-16] MEDS ORDERED: PIPERACIL-TAZO 3.375 GM PREMIX 50 ML IV ONE (19:15)
--- NOTE | 2016-11-16 19:17 | RADRPT ---
EXAM DATE/TIME: 11/16/2016 19:00 [facility] COMPARISON: No previous studies available for comparison. INDICATIONS : Altered mental status. RADIATION DOSE: 35.32 CTDIvol (mGy) ; Patient motion MEDICAL HISTORY : Hypertension. Carcinoma, lung. SURGICAL HISTORY : None. ENCOUNTER: Initial ACUITY: 1 day PAIN SCALE: Non-responsive LOCATION: Bilateral head TECHNIQUE: Multiple contiguous axial images were obtained of the head. Using automated exposure control and adj ustment of the mA and/or kV according to patient size, radiation dose was kept as low as reasonably a chievable to obtain optimal diagnostic quality images. DICOM format image data is available electro nically for review and comparison. FINDINGS: CEREBRUM: The ventricles are normal for age. No evidence of midline shift, mass lesion, hemorrhage or acute in farction. No extra-axial fluid collections are seen. POSTERIOR FOSSA: The cerebellum and brainstem are intact. The 4th ventricle is midline. The cerebellopontine angle i s unremarkable. EXTRACRANIAL: The visualized portion of the orbits is intact. SKULL: The calvaria is intact. No evidence of skull fracture. CONCLUSION: No acute disease. Larry Hollins MD on November 16, 2016 at 19:15 Board Certified Radiologist. This report was verified electronically.
[2016-11-16 19:18] LABS: BLOOD, URINE MOD (NEG); COMMENT (UR) CULT NOT INDICATED; CULTURE IF INDICATED CULT NOT INDICATED; GLUCOSE,URINE NEG (NEG); HYALINE CAST, URINE 16 /lpf (RARE); KETONE, URINE NEG (NEG); NITRITE,URINE NEG (NEG); URINE COLOR DARK-YELLOW (YELLW/STRAW)
[2016-11-16] MEDS ORDERED: PROM1SUP9 RECTAL (19:27)
[2016-11-16] MEDS ORDERED: MORP1TAB26 PO (19:27)
[2016-11-16] MEDS ORDERED: BUME1TAB PO (19:27)
[2016-11-16] MEDS ORDERED: PROC10TA PO (19:27)
[2016-11-16] MEDS ORDERED: MAGICADU2 SWISH-SWAL (19:27)
--- NOTE | 2016-11-16 19:57 | RADRPT ---
EXAM DATE/TIME: 11/16/2016 19:09 [facility] COMPARISON: CHEST SINGLE AP, April 27, 2016, 11:13. INDICATIONS : Fever. MEDICAL HISTORY : Gastroesophageal reflux disease. Arthritis. Chronic obstructive pulmonary disease. Metastatic amanda er disease. Lung cancer Diabetes SURGICAL HISTORY : section. ENCOUNTER: Initial ACUITY: 1 day PAIN SCORE: 10/10 LOCATION: Bilateral chest FINDINGS: A right internal jugular [id number] has its tip in the superior vena cava. Left hilar prominence is again noted. There is elevation of the right hemidiaphragm. No focal infiltrate is noted. No p ulmonary edema is noted. The heart is stable. Mild scoliosis and degenerative changes of the thorac ic spine are noted. CONCLUSION: 1. Stable left hilar prominence. 2. Elevation of the right hemidiaphragm. 3. No acute focal pulmonary infiltrate or pulmonary vascular congestion. Larry Hollins MD on November 16, 2016 at 19:20 Board Certified Radiologist. This report was verified electronically.
[2016-11-16] MEDS ORDERED: ETOMIDATE 20 MG/10 ML VIAL ONE (20:13)
[2016-11-16] MEDS ORDERED: SUCCINYLCHOLINE CHLORIDE 200 MG/10 ML VIAL ONE (20:13)
[2016-11-16] MEDS ORDERED: SODIUM CHLOR 0.9% 250 ML INJ 250 ML IV ONE (20:15)
[2016-11-16] MEDS ORDERED: VECURONIUM BROMIDE 10 MG VIAL ONE (20:16)
[2016-11-16] MEDS ORDERED: VECURONIUM BROMIDE 10 MG VIAL IV PUSH ONE (20:45)
[2016-11-16 20:46] LABS: HEMO FLAGS AUTO DIFF; MEAN CELL VOLUME 121.6 FL (80.0-100.0); MEAN CORPUSCULAR HGB CONC 32.1 % (32.0-36.0); RED BLOOD COUNT 0.93 MIL/MM3 (4.00-5.30); WHITE BLOOD COUNT 3.2 TH/MM3 (4.0-11.0)
[2016-11-16 20:46] LABS: APTT (PATIENT) 28.8 SEC (24.3-30.1)
[2016-11-16 20:47] LABS: RED CELL DISTRIBUTION WIDTH 22.8 % (11.6-17.2)
[2016-11-16 20:48] LABS: HEMATOCRIT 11.2 % (35.0-46.0)
[2016-11-16 20:49] LABS: PROTHROMBIN TIME - PATIENT 24.5 SEC (9.8-11.6)
[2016-11-16 20:49] LABS: PLATELET COUNT 4 TH/MM3 (150-450)
[2016-11-16 20:50] LABS: INTERNATIONAL NORMALIZED RATIO 2.1 RATIO
[2016-11-16] MEDS ORDERED: DOPamine INJ PREMIX 500 ML IV PRN (20:54)
[2016-11-16] MEDS ORDERED: TERBUTALINE INJ 1 MG/ML AMP SQ PRN (21:00)
--- NOTE | 2016-11-16 21:05 | RADRPT ---
EXAM DATE/TIME: 11/16/2016 20:40 [facility] COMPARISON: CHEST SINGLE AP, November 16, 2016, 19:09. INDICATIONS : Intubation and NG tube placement. MEDICAL HISTORY : Gastroesophageal reflux disease. Arthritis. Chronic obstructive pulmonary disease. Metastatic liver d isease. Lung cancer.Diabetes SURGICAL HISTORY : section. ENCOUNTER: Initial ACUITY: 1 day PAIN SCORE: Non-responsive. LOCATION: Bilateral chest FINDINGS: There has been interval development of scattered patchy opacities within the mid and lower lung field s consistent with pulmonary edema versus pneumonia. Clinical correlation is recommended. The endotr acheal tube has its tip approximately 3 cm above the bambi in good position. A nasogastric tube has its tip below the diaphragm. A right internal jugular [id number]-Ofye has its tip in the right atrium . CONCLUSION: 1. Interval development of patchy infiltrates within the mid and lower lung juarez consistent with pu lmonary edema versus pneumonia. Clinical correlation is recommended. 2. Endotracheal tube and nasogastric tube have been placed and are in good positions. Larry Hollins MD on November 16, 2016 at 20:55 Board Certified Radiologist. This report was verified electronically.
[2016-11-16] MEDS ORDERED: PANTOPRAZOLE INJ 80 MG in SODIUM CHLORIDE 0.9% INJ 100 ML IV SCH (21:25)
[2016-11-16 21:47] LABS: BANDS 1 % (0-6); CORRECTED NUCLEATED RBC 2 /100 WBC (0-0); WBC DIFF SAMPLE 100
[2016-11-16 21:48] LABS: SPHEROCYTES 1+ (NORMAL)
[2016-11-16 21:49] LABS: KERATOCYTES 1+ (NORMAL)
[2016-11-16 21:50] LABS: PLATELET ESTIMATE SMEAR RARE (NORMAL)
[2016-11-16 21:51] LABS: SCAN/DIFF FINAL DIFF MANUAL
--- NOTE | 2016-11-16 22:01 | PD ---
Physical Exam Date Seen by Provider: Nov 16, 2016 Time Seen by Provider: 19:00 Narrative Patient initially seen and evaluated by Dr. Stewart and Kris FROST, please see her note for further details. Signed out to me at 7 PM, awaiting workup. Her lab work was hemolyzed several times and on my initial evaluation, the patient appears to be in moderate respiratory distress, fairly disoriented, and I had discussed the patient's condition with her who would like me to discuss the condition with patient's daughter who is her power of deputy commonwealth's attorney. Lab work returned showing a very hemolyzed blood work with hemoglobin of 3.5 and my PA was asked to evaluate a Hemoccult. Hemoccult was grossly positive and at this point, PRBCs were ordered for the patient. When patient's daughter came in, I have talked to her regarding patient's condition and wanted to talk to her about CODE STATUS. Considering the patient's condition, stage IV cancer with metastases to the liver, I have talked to the daughter regarding whether the patient has a DO NOT RESUSCITATE order. However, the daughter states that she does not and she is not sure what she would've wanted although before the patient had done this today, her mom had wanted to have everything done. At this point, the patient's heart rate slowed down and she stopped breathing and went into asystole. Asystolic code was initiated this point. After multiple rounds of CPR which can be evaluated on patient's code sheet, patient had been intubated, we were able to regain a perfusing rhythm and pulses. Emergency release blood had been ordered and was initiated, additional IV fluids initiated , and dopamine had been ordered on the patient. Patient was admitted to product safety specialist service. Case had been discussed with GI who state that they will follow until patient is stable enough for further GI evaluation. However, the patient again went into PEA arrest and after multiple CPR attempts, I have talked to the family again and at this point, patient's daughter was agreeable to cease efforts. I had talked to the patient's family really regarding patient's condition and answered questions extensively. They state understanding. And had agreed to terminate the code. Aggregate critical care time was 35 minutes. Time to perform other separately billable procedures was not included in the critical care time. My time did not include minutes spent treating any other patients simultaneously or on activities that did not directly contribute to the patient's treatment. The services I provided to this patient were to treat and/or prevent clinically significant deterioration that could result in: Respiratory arrest, cardiopulmonary arrest, I provided critical care services requiring my management, as noted below: Chart data review, documentation time, medication orders and management, vital sign assessments/reviewing monitor data, ordering and reviewing lab tests, ordering and interpreting/reviewing x-rays and diagnostic studies, care of the patient and discussion of the patient with the admitting physicians. Data Data Last Documented VS Vital Signs Date Time Temp Pulse Resp B/P (MAP) Pulse Ox O2 Delivery O2 Flow Rate FiO2 11/16/16 19:50 114 28 82/41 (55) 100 Nasal Cannula 2.00 11/16/16 18:42 99.3 Orders Orders Electrocardiogram (11/16/16 18:22) Complete Blood Count With Diff (11/16/16 18:22) Comprehensive Metabolic Panel (11/16/16 18:22) Ckmb (Isoenzyme) Profile (11/16/16 18:22) Troponin I (11/16/16 18:22) Prothrombin Time / Inr (Pt) (11/16/16 18:22) Act Partial Throm Time (Ptt) (11/16/16 18:22) Blood Culture (11/16/16 18:22) Urinalysis - C+S If Indicated (11/16/16 18:22) Magnesium (Mg) (11/16/16 18:22) Thyroid Stimulating Hormone (11/16/16 18:22) Chest, Single Ap (11/16/16 18:22) Ct Brain W/O Iv Contrast(Rout) (11/16/16 18:22) Iv Access Insert/Monitor (11/16/16 18:22) Ecg Monitoring (11/16/16 18:22) Oximetry (11/16/16 18:22) Lactic Acid (11/16/16 18:22) Sodium Chlor 0.9% 1000 Ml Inj (Ns 1000 M (11/16/16 18:22) Ammonia (11/16/16 18:29) Vancomycin Inj (Vancomycin Inj) (11/16/16 19:15) Piperacil-Tazo 3.375 Gm Premix (Zosyn 3. (11/16/16 19:15) Sodium Chlor 0.9% 1000 Ml Inj (Ns 1000 M (11/16/16 19:05) Sodium Chlor 0.9% 1000 Ml Inj (Ns 1000 M (11/16/16 19:18) Type And Screen (11/16/16 20:01) Red Blood Cells (Rbc) (11/16/16 20:01) Blood Product Administration .UPON TRANSFUSION (11/16/16 20:01) Sodium Chlor 0.9% 250 Ml Inj (Ns 250 Ml (11/16/16 20:15) Arterial Blood Gas (Abg) (11/16/16 20:03) Etomidate Inj (Amidate Inj) (11/16/16 20:13) Succinylcholine Inj (Quelicin Inj) (11/16/16 20:13) Vecuronium 10 Mg Inj (Norcuron 10 Mg Inj (11/16/16 20:16) Sodium Chloride 0.9... W/Pantoprazole In (11/16/16 21:25) Chest, Single Ap (11/16/16 ) Platelet Pheresis (11/16/16 20:31) Admit Order (Ed Use Only) (11/16/16 20:32) Red Blood Cells (Rbc) (11/16/16 20:41) Red Blood Cells (Rbc) (11/16/16 20:41) Labs Laboratory Tests Test 11/16/16 18:50 11/16/16 19:40 11/16/16 20:28 Urine Color DARK-YELLOW Urine Turbidity HAZY Urine pH 5.0 Urine Specific [place] 1.018 Urine Protein TRACE mg/dL Urine Glucose (UA) NEG mg/dL Urine Ketones NEG mg/dL Urine Occult Blood MOD Urine Nitrite NEG Urine Bilirubin SMALL Urine Urobilinogen 2.0 MG/DL Urine Leukocyte Esterase NEG Urine RBC 1 /hpf Urine WBC 3 /hpf Urine Hyaline Casts 16 /lpf Microscopic Urinalysis Comment CULT NOT INDICATED White Blood Count 3.2 TH/MM3 Red Blood Count 0.93 MIL/MM3 Hemoglobin 3.6 GM/DL Hematocrit 11.2 % Mean Corpuscular Volume 121.6 FL Mean Corpuscular Hemoglobin 39.0 PG Mean Corpuscular Hemoglobin Concent 32.1 % Red Cell Distribution Width 22.8 % Platelet Count 4 TH/MM3 Mean Platelet Volume 4.4 FL CBC Comment AUTO DIFF Prothrombin Time 24.5 SEC Prothromb Time International Ratio 2.1 RATIO Activated Partial Thromboplast Time 28.8 SEC [facility] Medical Record Reviewed: Yes Supervised Visit with VALERIE: Yes Diagnosis Primary Impression: Altered mental status Qualified Codes: R41.82 - Altered mental status, unspecified Additional Impressions: GI bleed Qualified Codes: K92.2 - Gastrointestinal hemorrhage, unspecified Thrombocytopenia Sepsis Qualified Codes: A41.9 - Sepsis, unspecified organism Metastatic small cell carcinoma to liver Disposition: 20 Condition: Tameka Lovett MD Nov 16, 2016 22:01
--- NOTE | 2016-11-17 15:25 | EKG ---
Date Performed: 11/16/2016 Time Performed: 18:33:45 PTAGE: 56 years EKG: SINUS TACHYCARDIA ABNORMAL RHYTHM ECG Compared to PREVIOUS TRACING , sinus rate is faster. PREVIOUS TRACIN09/19/2016 18.28 DOCTOR: Stephen Foster Interpretating Date/Time 11/17/2016 15:23:14
== END 2016-11-16 23:43 | disposition expired ==
LOC: NEPC 18:06 → UNDOADMIN 20:34 → NEDA 20:34
DX: I46.9 Cardiac arrest, cause unspecified (principal); K92.2 Gastrointestinal hemorrhage, unspecified; A41.9 Sepsis, unspecified organism; D69.6 Thrombocytopenia, unspecified; C78.7 Secondary malignant neoplasm of liver and intrahepatic bile duct
CPT/HCPCS: 31500; 36430; 70450; 71010; 81001; 85007; 85027; 85610; 85730; 86850; 86900; 86901; 86920; 87040; 87205; 92950; 93005; 96374; 96375; 99291; J0171; J0330; J1265; J2543; J3370; J7030; J7050; P9016; 80053; 82140; 82550; 83605; 83735; 84443; 84484